=== PATIENT | male | born 1945 | race Caucasian/White ===

== ENCOUNTER 2021-07-24 11:14 | Inpatient (IN) ==
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
[2021-07-24] MEDS ORDERED: SODIUM CHLORIDE 0.9% 1000ML 1,000 ML IV SCH (11:30)
[2021-07-24 12:17] LABS: Basophils # (auto) 0.02 K/uL (0-0.2); Basophils % (auto) 0.2 %; Eosinophils # (auto) 0.05 K/uL (0-0.5); Eosinophils % (auto) 0.5 %; Hematocrit (blood only) 38.7 % (42-52); Immature Granulocytes # (auto) 0.04 K/uL (0.00-0.02); Immature Granulocytes % (auto) 0.4 %; Lymphocytes # (auto) 0.62 K/uL (1.2-3.4); Lymphocytes % (auto) 6.6 %; Mean Corpuscular Hgb Conc 33.6 g/dL (32-36); Mean Corpuscular Volume 83.2 fL (80-100); Mean Platelet Volume 9.6 fL (7.4-10.4); Monocytes # (auto) 1.18 K/uL (0.11-0.59); Monocytes % (auto) 12.5 %; Neutrophils # (auto) 7.55 K/uL (1.4-6.5); Neutrophils % (auto) 79.8 %; Platelet Count 222 K/uL (130-400); RDW Coefficient of Variation 16.3 % (11.5-14.5); RDW Standard Deviation 49.7 fL (36.4-46.3); Red Blood Count 4.65 M/uL (4.7-6.1); White Blood Count 9.46 K/uL (4.8-10.8)
[2021-07-24 12:39] LABS: Albumin Globulin Ratio 0.9 (0.9-2); BUN Creatinine Ratio 16.5 (10-20); Bilirubin,Total 1.4 mg/dl (0.2-1.0); Calcium 8.3 mg/dl (8.5-10.1); Creatinine Clr Calc Pharmacy 102.4 ml/min; Est GFR (African American) 100.4 ml/min; Est GFR (Non-African American) 86.6 ml/min; Globulin 3.5 gm/dl (2.5-4.0); Magnesium 2.1 mg/dl (1.7-2.4); Total Protein 6.5 gm/dl (6.0-8.3)
[2021-07-24 12:43] LABS: INR 1.1 (0.9-1.1); Partial Thromboplastin Ratio 1.2; Partial Thromboplastin Time 32.7 Seconds (21.0-31.0); Prothrombin Time 11.7 Seconds (9.0-12.0)
[2021-07-24 12:58] LABS: Influenza A virus by PCR Negative (Neg); Influenza B virus by PCR Negative (Neg); RSV by PCR Negative (Neg); SARS CoV2 RNA(COVID-19) InHosp NEGATIVE (Negative)
--- NOTE | 2021-07-24 13:27 | Ultrasound Report ---
US venous doppler LE RT HISTORY: 75 years-old Male swelling/pain eval dvt acute pain and swelling of the right lower leg COMPARISON: None TECHNIQUE: Multiple real-time sonographic images of the right lower extremity deep venous structures were obtained assessing grayscale appearance, color and spectral flow. FINDINGS: Normal flow, compressibility, phasicity and augmentation. IMPRESSION: No sonographic evidence of deep venous thrombosis. ACT 112: Negative or not required by law. The above report was generated using voice recognition software. It may contain grammatical, syntax o r spelling errors. Electronically signed by: Daniel Nelson M.D. 07/24/2021 1:25 PM
--- NOTE | 2021-07-24 14:03 | XRay Report ---
XR chest 1V not portable HISTORY: 75 years-old Male SEPSIS acute sepsis COMPARISON: Chest radiograph 12/23/2020 TECHNIQUE: Portable AP view of the chest FINDINGS: The cardiac silhouette is enlarged. Pulmonary vascular congestion with interstitial coarsening. Mild right hemidiaphragmatic elevation. Trace pleural effusions with mild bibasilar densities. No pneumoth orax. Degenerative changes of the shoulders and spine. IMPRESSION: 1. Cardiomegaly with pulmonary edema. 2. Trace pleural effusions with mild bibasilar opacities. 3. Mild right hemidiaphragmatic elevation. ACT 112: Negative or not required by law. The above report was generated using voice recognition software. It may contain grammatical, syntax o r spelling errors. Electronically signed by: Daniel Nelson M.D. 07/24/2021 2:02 PM
--- NOTE | 2021-07-24 14:04 | XRay Report ---
XR knee RT 1 or 2V routine CLINICAL HISTORY: Right knee pain. COMPARISON STUDY: Right knee 01/29/2021. FINDINGS: There is again noted a constrained right total knee arthroplasty. The hardware appears inta ct. No abnormal periprosthetic lucency. No fracture or dislocation within the right knee. Anterior so ft tissue swelling. There is a large knee effusion. IMPRESSION: 1. No fractures within the right knee. 2. Large knee effusion. 3. Anterior soft tissue swelling. ACT 112: Negative or not required by law. Electronically signed by: Garrison Arthur M.D. 07/24/2021 2:02 PM
--- NOTE | 2021-07-24 14:04 | XRay Report ---
XR hip 1V RT w pelvis CLINICAL HISTORY: Increasing right hip pain for the past 2 weeks.. COMPARISON STUDY: No previous studies for comparison. TECHNIQUE: AP pelvis and 2 right hip views FINDINGS: Bones: There is no evidence for an acute fracture or dislocation. There is no lytic or blastic lesion . Joints: There is moderate narrowing right hip joint space and moderate narrowing of the left hip join t space. Subchondral sclerosis and subchondral cyst formation are seen involving the superior acetabu lum bilaterally. The bones are in anatomic alignment. Lumbar spine: The lower lumbar spine was included on the AP view of the pelvis and demonstrates marke d degenerative change. Soft tissues: There is no focal soft tissue abnormality. There is no radiopaque foreign body. IMPRESSION: 1. No acute osseous pathology. 2. Osteoarthritis and degenerative changes. ACT 112: Negative or not required by law. Electronically signed by: Christoph Coles M.D. 07/24/2021 2:02 PM
--- NOTE | 2021-07-24 14:06 | CT Scan Report ---
CT SCAN OF THE BRAIN WITHOUT IV CONTRAST CLINICAL HISTORY: Falls. Generalized weakness. Difficulty with ambulation. COMPARISON STUDY: No priors. TECHNIQUE: Unenhanced axial CT scan of the brain is performed from the vertex to the skull base. A do se lowering technique was utilized adhering to the principles of ALARA. CT DOSE: 823.94 mGycm FINDINGS: Brain parenchyma: There are age-related involutional changes noting moderate patchy subcortical and periventricular microangiopathic change. There is no hemorrhage, mass effect, or evidence of acute te rritorial ischemia by CT criteria. Roberson-white matter differentiation is preserved. No extra-axial flu id collection is seen. Prominent perivascular spaces are noted in the basal ganglia bilaterally. Ventricles, sulci, cisterns: Prominent secondary to involutional change. Intracranial vasculature: There is atherosclerotic calcification of the cavernous carotid and vertebr al arteries. Calvarium: Unremarkable. Sinuses and mastoids: The visualized paranasal sinuses are clear. The mastoid air cells are well pneu matized. Orbits: The bony orbits are grossly intact. IMPRESSION: There is no hemorrhage, mass effect, or evidence of acute territorial ischemia by CT brittani liang. ACT 112: Negative or not required by law. Electronically signed by: Ruiz Hamlin M.D. 07/24/2021 2:04 PM
[2021-07-24 14:45] LABS: Appearance Urine Clear (Clear); Blood Urine Negative (Negative); Color Urine Orange; Glucose Urine UA Negative (Negative); Ketones Urine 1+ (Negative); Leukocyte Esterase Urine Trace (Negative); Nitrite Urine Positive (Negative); Protein Urine 2+ (Negative); RBC Urine Automated 0-4 /hpf (0-4); Specific Gravity Urine 1.026 (1.000-1.030); Urobilinogen Urine Positive (Negative); pH Urine 5.5 (4.5-7.5)
[2021-07-24 14:51] LABS: Bilirubin Urine 1+ (Negative)
[2021-07-24 15:00] LABS: Bacteria Urine Automated 1+ (Negative); Mucus Urine Present (None Prsent)
[2021-07-24] MEDS ORDERED: cefTRIAXone SODIUM 2,000 MG/70 ML BAG IV STA (15:11)
[2021-07-24] MEDS ORDERED: POTASSIUM CHLORIDE CRTAB 20 MEQ TABCR PO STA (15:13)
[2021-07-24] MEDS ORDERED: POTASSIUM CHLORIDE 10 MEQ TABCR PO ONE (15:20)
[2021-07-24] MEDS ORDERED: VANCOMYCIN HCL 2,250 MG in SODIUM CHLORIDE 0.9% 500 ML IV ONE (15:26)
[2021-07-24] MEDS ORDERED: VANCOMYCIN CONSULT ACTIVE PRN ×2 (15:26→17:45)
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
[2021-07-24] MEDS ORDERED: ALUMINUM/MAGNESIUM SUSP 30 ML UDC PO PRN (17:45)
[2021-07-24] MEDS ORDERED: oxyCODONE HCL IR 5 MG TAB (IMMEDIATE RELEASE) PO PRN (17:45)
[2021-07-24] MEDS ORDERED: POLYETHYLENE (MIRALAX) 17 GM PACK PO PRN (17:45)
[2021-07-24] MEDS ORDERED: MAGNESIUM HYDROXIDE SUSP 30 ML UDC PO PRN (17:45)
[2021-07-24] MEDS ORDERED: ONDANSETRON INJ 2 MG/ML 2 ML VIAL IV PRN (17:45)
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
[2021-07-24] MEDS ORDERED: POTASSIUM CHLORIDE CRTAB 20 MEQ TABCR PO ONE (19:00)
[2021-07-24 19:56] LABS: Appearance Synovial Fluid CLOUDY; Color Synovial Fluid STRAW; Mononuclear WBC Synovial 3.3 %; Polynuclear WBC Synovial 96.7 %; RBC Synovial Fluid (A) 3000 /uL; Source Synovial Fluid KNEE; WBC Synovial Fluid (A) 16832 /ul (0-200)
--- NOTE | 2021-07-24 20:21 | Pharmacy Report ---
Pharmacy Vanc AUC Short Note - Date of Service July 24, 2021 - Assessment & Plan Assessment * 75 year old M receiving ceftriaxone and vancomycin for treatment of RLE cellulitis and possible septic R knee. May or may not also have a UTI. * PMH: R TKA January 2021 * Pertinent microbiologic data includes: pending blood, urine, and right knee aspirate cultures Vancomycin * AUC/CLEMENTINA is the preferred PK/PD target for vancomycin * AUC guided dosing is effective and associated with decreased risk of nephrotoxicity compared to traditional trough targets Plan * Vancomycin 2250 mg IV x1 then 1000 mg IV q12h * Trough 07/26 @ 0730 Pharmacy will continue to follow and will adjust dose/frequency as necessary. Thank you.
[2021-07-24] MEDS: ACETAMINOPHEN 325 MG TAB PO PRN (20:42)
[2021-07-24] MEDS: ENOXAPARIN INJ 40 MG/0.4 ML SYR SQ SCH (20:46)
--- NOTE | 2021-07-25 06:58 | Electrocardiogram Report ---
Test Reason : Blood Pressure : / mmHG Vent. 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 lead placement vs. LVH Abnormal ECG When compared with ECG of 23-DEC-2020 15:01, No significant change was found Confirmed by Jose Delaney ([id number]) on 07/25/2021 6:57:54 AM Referred By: Confirmed By:Jose Delaney
[2021-07-25 07:01] LABS: Basophils # (auto) 0.02 K/uL (0-0.2); Basophils % (auto) 0.2 %; Eosinophils # (auto) 0.16 K/uL (0-0.5); Eosinophils % (auto) 1.9 %; Hematocrit (blood only) 40.3 % (42-52); Hemoglobin 13.4 g/dL (14.0-18.0); Immature Granulocytes # (auto) 0.03 K/uL (0.00-0.02); Immature Granulocytes % (auto) 0.4 %; Lymphocytes # (auto) 0.54 K/uL (1.2-3.4); Lymphocytes % (auto) 6.5 %; Mean Corpuscular Hemoglobin 27.8 pg (25-34); Mean Corpuscular Hgb Conc 33.3 g/dL (32-36); Mean Corpuscular Volume 83.6 fL (80-100); Mean Platelet Volume 10.3 fL (7.4-10.4); Monocytes # (auto) 0.95 K/uL (0.11-0.59); Monocytes % (auto) 11.5 %; Neutrophils # (auto) 6.59 K/uL (1.4-6.5); Neutrophils % (auto) 79.5 %; Platelet Count 221 K/uL (130-400); RDW Coefficient of Variation 16.4 % (11.5-14.5); RDW Standard Deviation 50.1 fL (36.4-46.3); Red Blood Count 4.82 M/uL (4.7-6.1); White Blood Count 8.29 K/uL (4.8-10.8)
[2021-07-25 07:34] LABS: Albumin Globulin Ratio 0.8 (0.9-2); Albumin Level 2.8 gm/dl (3.4-5.0); BUN Creatinine Ratio 19.1 (10-20); Bilirubin,Total 1.2 mg/dl (0.2-1.0); Calcium 8.1 mg/dl (8.5-10.1); Creatinine Clr Calc Pharmacy 108.6 ml/min; Est GFR (African American) 106.8 ml/min; Est GFR (Non-African American) 92.1 ml/min; Globulin 3.6 gm/dl (2.5-4.0); Magnesium 2.1 mg/dl (1.7-2.4); Potassium 3.2 mmol/L (3.5-5.1); Total Protein 6.4 gm/dl (6.0-8.3)
[2021-07-25] MEDS ORDERED: POTASSIUM CHLORIDE CRTAB 20 MEQ TABCR PO STA (08:22)
[2021-07-25] MEDS: MULTIVITAMIN TAB PO SCH (08:34)
[2021-07-25] MEDS: cefTRIAXone SODIUM 2,000 MG in DEXTROSE 5% 50 ML IV SCH (08:38)
[2021-07-25] MEDS: VANCOMYCIN HCL 1,000 MG in SODIUM CHLORIDE 0.9% 250 ML IV SCH ×2 (08:38→19:57)
[2021-07-25] MEDS: ENOXAPARIN INJ 40 MG/0.4 ML SYR SQ SCH ×2 (09:27→19:56)
--- NOTE | 2021-07-25 11:28 | Hospitalist Progress Note ---
Date of Service July 25, 2021 Assessment & Plan (1) Staphylococcus aureus bacteremia: (2) Septic arthritis of knee, right: (3) Cellulitis of right leg: (4) History of total right knee replacement (TKR): (5) Abnormal urinalysis: (6) Elevated troponin: (7) Hypokalemia: Plan: This is a 75-year-old who presents to ED after complaining of "I can't move x 2 weeks." He has been having trouble walking due to RLE pain for approximately 2 weeks. Suspected septic arthritis right TKR with right leg cellulitis with staph aureus bacteremia History of right total knee replacement, 01/2021 Dr. Jimenez - Blood clx 07/24 with GPC clusters in 05/14, Staph positive by PCR but MRSA negative. Repeat blood clx sent today- daily blood clx until clearance of bacteremia. F/u on CRP, ESR intermittently - Get TTE to r/o vegetations. - [place] [address] WBC (although not too high as seen in septic arthritis), cloudy but negative crystals; clx pending - Continue vanc pending further clx results - Ortho following- plan for OR tomorrow- npo after midnight- Ortho to send OR cultures - Will consult ID once more data available. patient currently stable, non septic - Will need PT evaluation after surgery for discharge planning Abnormal UA- r/o UTI. On rocephin pending urine clx results. Hypokalemia- repleted, recheck in am Elevated high-sensitivity troponin EKG without ischemic change, patient denies chest pain Cycle troponin, EKG in a.m. DVT prophylaxis: Lovenox- hold in am for surgery Dispo: OR tomorrow. On IV antibiotics for bacteremia and septic TKR. Will likely need rehab. Admission and Anticipated Discharge Date Admission Date: July 24, 2021 Subjective Patient was seen and examined at bedside. States a lot of fluid was taken from his right knee yesterday and he was surprised by the amount taken out. Has some pain at the right knee. No fever, chills, chest pain, shortness of breath, nausea, vomiting. Discussed the plan of care with him. States his sister is coming to the hospital in the afternoon to visit him. Physical Exam Physical Exam: General: Sitting comfortably in chair, not in distress, on room air HEENT: EOMI, MAEGAN, MMM Chest: Clear breath sounds bilaterally, no wheezes or crackles CVS: Regular rate and rhythm, normal heart sounds, no murmur Abdomen: Soft, non tender, not distended, normal bowel sounds Neuro: Awake, alert, oriented, conversing well, non focal Extremities: No cyanosis, clubbing. Right knee swollen, warm, tender, mild erythema. Right leg with some skin peeling and swelling. Results & Data Results & Data ([facility]) Vital Signs (Past 12 Hours) Vital Signs Temp Pulse Pulse Resp BP Pulse Ox 07/25/21 09:43 99 H 07/25/21 08:39 37.2 C 93 H 20 162/87 H 92 07/25/21 03:00 37.4 C 96 H 20 146/77 H 92 07/25/21 00:16 100 H
--- NOTE | 2021-07-25 12:52 | Orthopedic Progress Note ---
Date of Service July 25, 2021 Assessment & Plan (1) Cellulitis: Plan: Right lower extremity cellulitis patient on IV antibiotics to treat condition (2) Knee effusion, right: Plan: Likely septic right TKA Gram stain + for gram + cocci; 16k WBC's; 96% poly's Pt will need I&D of right tka with polyethylene bearing change. Plan for tomorrow per Dr Jimenez. Case discussed with hospitalist service. (3) History of total right knee replacement (TKR): Admission and Anticipated Discharge Date Admission Date: July 24, 2021 Subjective Pt sitting up in bed eating his lunch. Pt relatively comfortable at this time. Pain controlled fairly well. No other complaints. Sister present. All questions answered. Physical Exam Physical Exam: Right knee with large effusion. Erythema. Warm to touch. Erythema noted LE's of which apparently looks better today than yesterday. NV intact. Toes mobile. Calves soft, NT. Results & Data ([facility]) Vital Signs (Past 12 Hours) Vital Signs Temp Pulse Pulse Resp BP Pulse Ox 07/25/21 11:54 37.1 C 111 H 20 135/79 93 07/25/21 09:43 99 H 07/25/21 08:39 37.2 C 93 H 20 162/87 H 92 07/25/21 03:00 37.4 C 96 H 20 146/77 H 92 Laboratory Results 07/25/21 07/25/21 07/24/21 Range/Units 05:48 05:48 23:23 WBC 8.29 (4.8-10.8) K/uL RBC 4.82 (4.7-6.1) M/uL Hgb 13.4 L (14.0-18.0) g/dL Hct 40.3 L (42-52) % MCV 83.6 (80-100) fL MCH 27.8 (25-34) pg MCHC 33.3 (32-36) g/dL RDW Std Deviation 50.1 H (36.4-46.3) fL RDW Coeff of Nik 16.4 H (11.5-14.5) % Plt Count 221 (130-400) K/uL MPV 10.3 (7.4-10.4) fL Immature Gran % (Auto) 0.4 % Neut % (Auto) 79.5 % Lymph % (Auto) 6.5 % [place] % (Auto) 11.5 % Eos % (Auto) 1.9 % Baso % (Auto) 0.2 % Neut # (Auto) 6.59 H (1.4-6.5) K/uL Lymph # (Auto) 0.54 L (1.2-3.4) K/uL [place] # (Auto) 0.95 H (0.11-0.59) K/uL Eos # (Auto) 0.16 (0-0.5) K/uL Baso # (Auto) 0.02 (0-0.2) K/uL Immature Gran # (Auto) 0.03 H (0.00-0.02) K/uL ESR (0-20) mm/hr Sodium 134 L (136-145) mmol/L Potassium 3.2 L (3.5-5.1) mmol/L Chloride 100 (98-107) mmol/L Carbon Dioxide 25 (21-32) mmol/L Anion Gap 9 (3-11) BUN 13 (6-23) mg/dl Creatinine 0.68 (0.6-1.4) mg/dl Est Cr Clr Drug Dosing 108.6 ml/min Est GFR ( Amer) 106.8 ml/min Est GFR (Non-Af Amer) 92.1 ml/min BUN/Creatinine Ratio 19.1 (10-20) Glucose 95 (70-99(Fasting)) mg/dl Calcium 8.1 L (8.5-10.1) mg/dl Magnesium 2.1 (1.7-2.4) mg/dl Total Bilirubin 1.2 H (0.2-1.0) mg/dl AST 23 (13-39) U/L ALT 18 (7-52) U/L Alkaline Phosphatase 62 (34-104) U/L Troponin I High Sens 19.4 (0-20) pg/ml C-Reactive Protein (0-0.5) mg/dl Total Protein 6.4 (6.0-8.3) gm/dl Albumin 2.8 L (3.4-5.0) gm/dl Globulin 3.6 (2.5-4.0) gm/dl Albumin/Globulin Ratio 0.8 L (0.9-2) Procalcitonin (0-0.5) ng/ml Urine Color Urine Appearance (Clear) Urine pH (4.5-7.5) Ur Specific [place] (1.000-1.030) Urine Protein (Negative) Urine Glucose (UA) (Negative) Urine Ketones (Negative) Urine Blood (Negative) Urine Nitrite (Negative) Urine Bilirubin (Negative) Urine Urobilinogen (Negative) Ur Leukocyte Esterase (Negative) Urine WBC (Auto) (0-5) /hpf Urine RBC (Auto) (0-4) /hpf U Hyaline Cast (Auto) (0-5) /lpf U Epithel Cells (Auto) (0-5) /lpf Urine Bacteria (Auto) (Negative) Ur Renal Epithelial Cell Urine Mucus (None Prsent) Fluid Comment Synovial Source Synovial Color Synovial Appearance Synovial WBC (0-200) /ul Synovial RBC /uL Synovial Polynuclear % % Synovial Mononuclear % % Synovial Crystals SARS-CoV-2 (PCR) (Negative) Influenza Type A (PCR) (Neg) Influenza Type B (PCR) (Neg) RSV (RT-PCR) (Neg) Bld Cult Staph aureus PCR (Negative) Blood Culture MRSA PCR (Negative) 07/24/21 07/24/21 07/24/21 Range/Units 19:03 18:15 18:15 WBC (4.8-10.8) K/uL RBC (4.7-6.1) M/uL Hgb (14.0-18.0) g/dL Hct (42-52) % MCV (80-100) fL MCH (25-34) pg MCHC (32-36) g/dL RDW Std Deviation (36.4-46.3) fL RDW Coeff of Nik (11.5-14.5) % Plt Count (130-400) K/uL MPV (7.4-10.4) fL Immature Gran % (Auto) % Neut % (Auto) % Lymph % (Auto) % [place] % (Auto) % Eos % (Auto) % Baso % (Auto) % Neut # (Auto) (1.4-6.5) K/uL Lymph # (Auto) (1.2-3.4) K/uL [place] # (Auto) (0.11-0.59) K/uL Eos # (Auto) (0-0.5) K/uL Baso # (Auto) (0-0.2) K/uL Immature Gran # (Auto) (0.00-0.02) K/uL ESR (0-20) mm/hr Sodium (136-145) mmol/L Potassium (3.5-5.1) mmol/L Chloride (98-107) mmol/L Carbon Dioxide (21-32) mmol/L Anion Gap (3-11) BUN (6-23) mg/dl Creatinine (0.6-1.4) mg/dl Est Cr Clr Drug Dosing ml/min Est GFR ( Amer) ml/min Est GFR (Non-Af Amer) ml/min BUN/Creatinine Ratio (10-20) Glucose (70-99(Fasting)) mg/dl Calcium (8.5-10.1) mg/dl Magnesium (1.7-2.4) mg/dl Total Bilirubin (0.2-1.0) mg/dl AST (13-39) U/L ALT (7-52) U/L Alkaline Phosphatase (34-104) U/L Troponin I High Sens 21.2 H (0-20) pg/ml C-Reactive Protein (0-0.5) mg/dl Total Protein (6.0-8.3) gm/dl Albumin (3.4-5.0) gm/dl Globulin (2.5-4.0) gm/dl Albumin/Globulin Ratio (0.9-2) Procalcitonin (0-0.5) ng/ml Urine Color Urine Appearance (Clear) Urine pH (4.5-7.5) Ur Specific [place] (1.000-1.030) Urine Protein (Negative) Urine Glucose (UA) (Negative) Urine Ketones (Negative) Urine Blood (Negative) Urine Nitrite (Negative) Urine Bilirubin (Negative) Urine Urobilinogen (Negative) Ur Leukocyte Esterase (Negative) Urine WBC (Auto) (0-5) /hpf Urine RBC (Auto) (0-4) /hpf U Hyaline Cast (Auto) (0-5) /lpf U Epithel Cells (Auto) (0-5) /lpf Urine Bacteria (Auto) (Negative) Ur Renal Epithelial Cell Urine Mucus (None Prsent) Fluid Comment Synovial Source [place] Synovial Color STRAW Synovial Appearance CLOUDY Synovial WBC 85849 H (0-200) /ul Synovial RBC 3000 /uL Synovial Polynuclear % 96.7 % Synovial Mononuclear % 3.3 % Synovial Crystals SARS-CoV-2 (PCR) (Negative) Influenza Type A (PCR) (Neg) Influenza Type B (PCR) (Neg) RSV (RT-PCR) (Neg) Bld Cult Staph aureus PCR (Negative) Blood Culture MRSA PCR (Negative) 07/24/21 07/24/21 07/24/21 Range/Units 14:29 14:17 12:02 WBC (4.8-10.8) K/uL RBC (4.7-6.1) M/uL Hgb (14.0-18.0) g/dL Hct (42-52) % MCV (80-100) fL MCH (25-34) pg MCHC (32-36) g/dL RDW Std Deviation (36.4-46.3) fL RDW Coeff of Nik (11.5-14.5) % Plt Count (130-400) K/uL MPV (7.4-10.4) fL Immature Gran % (Auto) % Neut % (Auto) % Lymph % (Auto) % [place] % (Auto) % Eos % (Auto) % Baso % (Auto) % Neut # (Auto) (1.4-6.5) K/uL Lymph # (Auto) (1.2-3.4) K/uL [place] # (Auto) (0.11-0.59) K/uL Eos # (Auto) (0-0.5) K/uL Baso # (Auto) (0-0.2) K/uL Immature Gran # (Auto) (0.00-0.02) K/uL ESR (0-20) mm/hr Sodium (136-145) mmol/L Potassium (3.5-5.1) mmol/L Chloride (98-107) mmol/L Carbon Dioxide (21-32) mmol/L Anion Gap (3-11) BUN (6-23) mg/dl Creatinine (0.6-1.4) mg/dl Est Cr Clr Drug Dosing ml/min Est GFR ( Amer) ml/min Est GFR (Non-Af Amer) ml/min BUN/Creatinine Ratio (10-20) Glucose (70-99(Fasting)) mg/dl Calcium (8.5-10.1) mg/dl Magnesium (1.7-2.4) mg/dl Total Bilirubin (0.2-1.0) mg/dl AST (13-39) U/L ALT (7-52) U/L Alkaline Phosphatase (34-104) U/L Troponin I High Sens 23.8 H (0-20) pg/ml C-Reactive Protein (0-0.5) mg/dl Total Protein (6.0-8.3) gm/dl Albumin (3.4-5.0) gm/dl Globulin (2.5-4.0) gm/dl Albumin/Globulin Ratio (0.9-2) Procalcitonin (0-0.5) ng/ml Urine Color [place] Urine Appearance Clear (Clear) Urine pH 5.5 (4.5-7.5) Ur Specific [place] 1.026 (1.000-1.030) Urine Protein 2+ H (Negative) Urine Glucose (UA) Negative (Negative) Urine Ketones 1+ H (Negative) Urine Blood Negative (Negative) Urine Nitrite Positive A (Negative) Urine Bilirubin 1+ H (Negative) Urine Urobilinogen Positive H (Negative) Ur Leukocyte Esterase Trace H (Negative) Urine WBC (Auto) 5-10 H (0-5) /hpf Urine RBC (Auto) 0-4 (0-4) /hpf U Hyaline Cast (Auto) 5-10 H (0-5) /lpf U Epithel Cells (Auto) 5-10 H (0-5) /lpf Urine Bacteria (Auto) 1+ H (Negative) Ur Renal Epithelial Cell Not Reportable Urine Mucus Present A (None Prsent) Fluid Comment Synovial Source Synovial Color Synovial Appearance Synovial WBC (0-200) /ul Synovial RBC /uL Synovial Polynuclear % % Synovial Mononuclear % % Synovial Crystals SARS-CoV-2 (PCR) (Negative) Influenza Type A (PCR) (Neg) Influenza Type B (PCR) (Neg) RSV (RT-PCR) (Neg) Bld Cult Staph aureus PCR Positive A (Negative) Blood Culture MRSA PCR Negative (Negative) 07/24/21 07/24/21 07/24/21 Range/Units 12:02 12:02 12:02 WBC (4.8-10.8) K/uL RBC (4.7-6.1) M/uL Hgb (14.0-18.0) g/dL Hct (42-52) % MCV (80-100) fL MCH (25-34) pg MCHC (32-36) g/dL RDW Std Deviation (36.4-46.3) fL RDW Coeff of Nik (11.5-14.5) % Plt Count (130-400) K/uL MPV (7.4-10.4) fL Immature Gran % (Auto) % Neut % (Auto) % Lymph % (Auto) % [place] % (Auto) % Eos % (Auto) % Baso % (Auto) % Neut # (Auto) (1.4-6.5) K/uL Lymph # (Auto) (1.2-3.4) K/uL [place] # (Auto) (0.11-0.59) K/uL Eos # (Auto) (0-0.5) K/uL Baso # (Auto) (0-0.2) K/uL Immature Gran # (Auto) (0.00-0.02) K/uL ESR 77 H (0-20) mm/hr Sodium (136-145) mmol/L Potassium (3.5-5.1) mmol/L Chloride (98-107) mmol/L Carbon Dioxide (21-32) mmol/L Anion Gap (3-11) BUN (6-23) mg/dl Creatinine (0.6-1.4) mg/dl Est Cr Clr Drug Dosing ml/min Est GFR ( Amer) ml/min Est GFR (Non-Af Amer) ml/min BUN/Creatinine Ratio (10-20) Glucose (70-99(Fasting)) mg/dl Calcium (8.5-10.1) mg/dl Magnesium (1.7-2.4) mg/dl Total Bilirubin (0.2-1.0) mg/dl AST (13-39) U/L ALT (7-52) U/L Alkaline Phosphatase (34-104) U/L Troponin I High Sens (0-20) pg/ml C-Reactive Protein 27.11 H (0-0.5) mg/dl Total Protein (6.0-8.3) gm/dl Albumin (3.4-5.0) gm/dl Globulin (2.5-4.0) gm/dl Albumin/Globulin Ratio (0.9-2) Procalcitonin 1.01 H (0-0.5) ng/ml Urine Color Urine Appearance (Clear) Urine pH (4.5-7.5) Ur Specific [place] (1.000-1.030) Urine Protein (Negative) Urine Glucose (UA) (Negative) Urine Ketones (Negative) Urine Blood (Negative) Urine Nitrite (Negative) Urine Bilirubin (Negative) Urine Urobilinogen (Negative) Ur Leukocyte Esterase (Negative) Urine WBC (Auto) (0-5) /hpf Urine RBC (Auto) (0-4) /hpf U Hyaline Cast (Auto) (0-5) /lpf U Epithel Cells (Auto) (0-5) /lpf Urine Bacteria (Auto) (Negative) Ur Renal Epithelial Cell Urine Mucus (None Prsent) Fluid Comment Synovial Source Synovial Color Synovial Appearance Synovial WBC (0-200) /ul Synovial RBC /uL Synovial Polynuclear % % Synovial Mononuclear % % Synovial Crystals SARS-CoV-2 (PCR) (Negative) Influenza Type A (PCR) (Neg) Influenza Type B (PCR) (Neg) RSV (RT-PCR) (Neg) Bld Cult Staph aureus PCR (Negative) Blood Culture MRSA PCR (Negative) 07/24/21 07/24/21 Range/Units 12:02 12:02 WBC (4.8-10.8) K/uL RBC (4.7-6.1) M/uL Hgb (14.0-18.0) g/dL Hct (42-52) % MCV (80-100) fL MCH (25-34) pg MCHC (32-36) g/dL RDW Std Deviation (36.4-46.3) fL RDW Coeff of Nik (11.5-14.5) % Plt Count (130-400) K/uL MPV (7.4-10.4) fL Immature Gran % (Auto) % Neut % (Auto) % Lymph % (Auto) % [place] % (Auto) % Eos % (Auto) % Baso % (Auto) % Neut # (Auto) (1.4-6.5) K/uL Lymph # (Auto) (1.2-3.4) K/uL [place] # (Auto) (0.11-0.59) K/uL Eos # (Auto) (0-0.5) K/uL Baso # (Auto) (0-0.2) K/uL Immature Gran # (Auto) (0.00-0.02) K/uL ESR (0-20) mm/hr Sodium (136-145) mmol/L Potassium (3.5-5.1) mmol/L Chloride (98-107) mmol/L Carbon Dioxide (21-32) mmol/L Anion Gap (3-11) BUN (6-23) mg/dl Creatinine (0.6-1.4) mg/dl Est Cr Clr Drug Dosing ml/min Est GFR ( Amer) ml/min Est GFR (Non-Af Amer) ml/min BUN/Creatinine Ratio (10-20) Glucose (70-99(Fasting)) mg/dl Calcium (8.5-10.1) mg/dl Magnesium (1.7-2.4) mg/dl Total Bilirubin (0.2-1.0) mg/dl AST (13-39) U/L ALT (7-52) U/L Alkaline Phosphatase (34-104) U/L Troponin I High Sens 25.8 H (0-20) pg/ml C-Reactive Protein (0-0.5) mg/dl Total Protein (6.0-8.3) gm/dl Albumin (3.4-5.0) gm/dl Globulin (2.5-4.0) gm/dl Albumin/Globulin Ratio (0.9-2) Procalcitonin (0-0.5) ng/ml Urine Color Urine Appearance (Clear) Urine pH (4.5-7.5) Ur Specific [place] (1.000-1.030) Urine Protein (Negative) Urine Glucose (UA) (Negative) Urine Ketones (Negative) Urine Blood (Negative) Urine Nitrite (Negative) Urine Bilirubin (Negative) Urine Urobilinogen (Negative) Ur Leukocyte Esterase (Negative) Urine WBC (Auto) (0-5) /hpf Urine RBC (Auto) (0-4) /hpf U Hyaline Cast (Auto) (0-5) /lpf U Epithel Cells (Auto) (0-5) /lpf Urine Bacteria (Auto) (Negative) Ur Renal Epithelial Cell Urine Mucus (None Prsent) Fluid Comment Synovial Source Synovial Color Synovial Appearance Synovial WBC (0-200) /ul Synovial RBC /uL Synovial Polynuclear % % Synovial Mononuclear % % Synovial Crystals SARS-CoV-2 (PCR) NEGATIVE (Negative) Influenza Type A (PCR) Negative (Neg) Influenza Type B (PCR) Negative (Neg) RSV (RT-PCR) Negative (Neg) Bld Cult Staph aureus PCR (Negative) Blood Culture MRSA PCR (Negative) (1) Cellulitis Laterality: right Site of cellulitis: extremity Site of cellulitis of extremity: lower extremity Qualified Code(s): L03.115 - Cellulitis of right lower limb
[2021-07-25] MEDS: ACETAMINOPHEN 325 MG TAB PO PRN ×2 (14:15→19:59)
[2021-07-25] MEDS: SACCHAROMYCES BOULARDII 250 MG CAP PO SCH (16:52)
[2021-07-25] MEDS ORDERED: POTASSIUM CHLORIDE CRTAB 20 MEQ TABCR PO ONE (18:05)
--- NOTE | 2021-07-26 06:31 | Electrocardiogram Report ---
Test Reason : Blood Pressure : / mmHG Vent. Rate : 101 BPM Atrial Rate : 101 BPM P-R Int : 168 ms QRS Dur : 096 ms QT Int : 358 ms P-R-T Axes : 020 -36 045 degrees QTc Int : 464 ms Sinus tachycardia with frequent , and consecutive Premature ventricular complexes Left axis deviation Low voltage QRS Inferior infarct (cited on or before 23-DEC-2020) Abnormal ECG When compared with ECG of 24-JUL-2021 11:50, Premature ventricular complexes are now Present Confirmed by Jose Delaney ([id number]) on 07/26/2021 6:31:15 AM Referred By: REFERRED SELF Confirmed By:Jose Delaney
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
[2021-07-26] MEDS ORDERED: ROPIVACAINE 0.5% 5 MG/ML 30 ML VIAL ONE (06:58)
[2021-07-26] MEDS ORDERED: VANCOMYCIN TROUGH ONE (07:30)
[2021-07-26] MEDS ORDERED: fentaNYL citrate 100 MCG/2 ML VIAL ONE ×3 (07:50→10:58)
[2021-07-26] MEDS ORDERED: MIDAZOLAM HCL 1 MG/ML 2ML VIAL ONE (07:50)
[2021-07-26 07:56] LABS: Hematocrit (blood only) 38.9 % (42-52); Hemoglobin 13.2 g/dL (14.0-18.0); Mean Corpuscular Hemoglobin 28.5 pg (25-34); Mean Corpuscular Hgb Conc 33.9 g/dL (32-36); Mean Platelet Volume 9.9 fL (7.4-10.4); Platelet Count 267 K/uL (130-400); RDW Coefficient of Variation 16.2 % (11.5-14.5); RDW Standard Deviation 50.1 fL (36.4-46.3); Red Blood Count 4.63 M/uL (4.7-6.1); White Blood Count 8.67 K/uL (4.8-10.8)
[2021-07-26] MEDS: cefTRIAXone SODIUM 2,000 MG in DEXTROSE 5% 50 ML IV SCH (08:04)
[2021-07-26] MEDS: SACCHAROMYCES BOULARDII 250 MG CAP PO SCH (08:07)
[2021-07-26] MEDS: VANCOMYCIN HCL 1,000 MG in SODIUM CHLORIDE 0.9% 250 ML IV SCH (08:07)
[2021-07-26] MEDS: MULTIVITAMIN TAB PO SCH (08:07)
[2021-07-26 08:19] LABS: BUN Creatinine Ratio 16.7 (10-20); Calcium 8.2 mg/dl (8.5-10.1); Creatinine Clr Calc Pharmacy 123.1 ml/min; Est GFR (African American) 112.4 ml/min; Magnesium 2.1 mg/dl (1.7-2.4); Potassium 3.3 mmol/L (3.5-5.1)
[2021-07-26 08:21] LABS: Basophils # (auto) 0.03 K/uL (0-0.2); Basophils % (auto) 0.3 %; Eosinophils # (auto) 0.24 K/uL (0-0.5); Eosinophils % (auto) 2.8 %; Immature Granulocytes # (auto) 0.03 K/uL (0.00-0.02); Immature Granulocytes % (auto) 0.3 %; Lymphocytes # (auto) 0.89 K/uL (1.2-3.4); Lymphocytes % (auto) 10.3 %; Monocytes # (auto) 0.96 K/uL (0.11-0.59); Monocytes % (auto) 11.1 %; Neutrophils # (auto) 6.52 K/uL (1.4-6.5); Neutrophils % (auto) 75.2 %
[2021-07-26] MEDS ORDERED: fentaNYL citrate 100 MCG/2 ML VIAL IV PRN (08:46)
[2021-07-26] MEDS ORDERED: ePHEDrine sulfate 50 MG/ML AMP IV PRN (08:46)
[2021-07-26] MEDS ORDERED: ONDANSETRON INJ 2 MG/ML 2 ML VIAL IV PRN (08:46)
[2021-07-26] MEDS ORDERED: ATROPINE SULFATE 0.1 MG/ML 10ML SYR IV PRN (08:46)
[2021-07-26] MEDS ORDERED: LIDOCAINE 2% 2 ML VIAL/AMP(20MG/ML) INFIL ONE (08:50)
[2021-07-26] MEDS ORDERED: PROPOFOL IV EMULSION 10 MG/ML 20 ML VIAL IV ONE (08:50)
[2021-07-26] MEDS ORDERED: ceFAZolin 330 MG/ML 1 GM VIAL ONE ×2 (09:13→09:38)
[2021-07-26] MEDS ORDERED: POTASSIUM CHLORIDE CRTAB 20 MEQ TABCR PO STA ×2 (09:46→14:05)
--- NOTE | 2021-07-26 09:51 | History & Physical Bridge Note ---
Date of Service July 26, 2021 History & Physical Bridge Note I have examined the patient, reviewed the History & Physical and in the interval since the performance of the History & Physical I have noted the following changes of clinical significance: no changes noted
[2021-07-26] MEDS ORDERED: ONDANSETRON INJ 2 MG/ML 2 ML VIAL ONE (09:57)
[2021-07-26] MEDS ORDERED: KETAMINE 50 MG/5 ML SYRINGE ONE (10:13)
[2021-07-26] MEDS: VANCOMYCIN HCL 1000MG/20ML VIAL ONE (10:24)
[2021-07-26] MEDS ORDERED: ACETAMINOPHEN 1000 MG/100 ML IV IV ONE (10:31)
[2021-07-26] MEDS ORDERED: KETOROLAC 30 MG/ML VIAL ONE (11:00)
[2021-07-26] MEDS ORDERED: DEXAMETHASONE SOD INJ 4 MG/ML VIAL ONE (11:43)
--- NOTE | 2021-07-26 12:07 | Post Operative Brief Note ---
Immediate Post Op Note v1 Date of Surgery July 26, 2021 Pre & Post Diagnosis Operation Date: 07/26/21 07:00 Pre-Op Diagnosis: Acute septic right knee replacement, right lower extremity cellulitis. Post-Op Diagnosis: Acute septic right knee replacement, right lower extremity cellulitis I identified the patient and participated in the time-out.: Yes Procedure Operation Date: 07/26/21 07:00 Actual Procedures p Incision and Drainage, irrigation debridement, synovectomy of Right Knee with tibial polyethylene Bearing Change, placement of antibiotic beads and kannan and Acticoat superficial wound VAC (Right) - Sam Jimenez MD Surgeon Sam Jimenez MD Sheeter W[employer]er Operator RAJ Bosch Estimated Blood Loss 10 Findings Consistent with Post-Op Diagnosis Specimens Synovial tissue Culture swabs x2 Drains Hemovac Drain Anesthesia Type General Regional Complications none Disposition Disposition: Recovery Room Overlapping Procedure I was immediately available: during the entire case.
--- NOTE | 2021-07-26 12:35 | Anesthesiology Progress Note ---
Date of Service July 26, 2021 Anesthesia Post Procedure Vital Signs Vital Signs: Temp Pulse Pulse Pulse Resp BP BP 07/26/21 12:20 90 21 149/85 H 07/26/21 12:10 88 20 158/87 H 07/26/21 12:04 97.3 F L 91 H 19 160/85 H 07/26/21 07:35 96 H 07/26/21 07:00 98.1 F 82 20 136/69 07/26/21 04:23 98.4 F 107 H 20 138/69 07/26/21 02:33 92 H 07/25/21 22:00 98.1 F 96 H 20 132/72 07/25/21 19:00 100.2 F H 110 H 20 153/80 H 07/25/21 16:24 91 H 07/25/21 16:00 98.2 F 98 H 18 143/71 H Pulse Ox 07/26/21 12:20 97 07/26/21 12:10 97 07/26/21 12:04 95 07/26/21 07:35 07/26/21 07:00 93 07/26/21 04:23 92 07/26/21 02:33 07/25/21 22:00 93 07/25/21 19:00 97 07/25/21 16:24 07/25/21 16:00 92 Pain Intensity Right Knee: Pain Intensity: 2 Transfer of Care Handoff Completed per policy Notes Mental Status: alert / awake / arousable and participated in evaluation Patient Amnestic to Procedure: Yes Nausea / Vomiting: adequately controlled Pain: adequately controlled Airway Patency, RR, SpO2: stable & adequate BP & HR: stable & adequate Hydration State: stable & adequate Anesthetic Complications: no major complications apparent and Pt Satisfied with anesthetic care
--- NOTE | 2021-07-26 12:43 | XRay Report ---
XR knee RT 1 or 2V routine CLINICAL HISTORY: Surgical Post Op. COMPARISON STUDY: 07/24/2021 TECHNIQUE: 2 right knee views FINDINGS: Compared to previous examination, the patient is again status post total knee replacement w ith a hinge component. There is resurfacing of the patella. There has been interval placement of anti biotic beads within the knee joint. IMPRESSION: 1. Status post placement of antibiotic beads within the knee joint capsule. ACT 112: Negative or not required by law. Electronically signed by: Christoph Coles M.D. 07/26/2021 12:42 PM
--- NOTE | 2021-07-26 13:06 | Operative Report (OR) ---
INDICATIONS FOR PROCEDURE: The patient is a 75-year-old male who I did a primary right total knee re placement in January of 2021. He did well, was having no difficulty whatsoever until 2 weeks ago whe n he developed cellulitis of his leg and then the right knee became painful and swollen and he became septic and admitted to the hospital. Blood cultures were positive for staph. The knee aspirated fo r 100 mL of cloudy fluid with increased white blood cell count of the knee joint fluid and positive c ultures for staph. Radiographs demonstrate no loosening of the implant. The patient does have right lower extremity cellulitis. His condition is consistent with an acute septic right knee replacement without loosening. PREOPERATIVE DIAGNOSIS: Acute right septic total knee replacement with ipsilateral right lower extre mity cellulitis. POSTOPERATIVE DIAGNOSIS: Acute right septic total knee replacement with ipsilateral right lower extr emity cellulitis. PROCEDURE: Right knee incision and drainage and irrigation and debridement including electrocautery synovectomy and Versajet synovectomy debridement with tibial polyethylene exchange and placement of a ntibiotic beads with vancomycin. SURGEON: Sam Jimenez MD ATHLETIC EQUIPMENT CUSTODIAN: Santos Liang PA-C ANESTHESIA: General and regional block. COMPLICATIONS: None. SPECIMENS: Synovium and cultures x2. BLOOD LOSS: 10 mL or less. DRAINS: Two Hemovac. DESCRIPTION OF PROCEDURE: The patient had a regional block, adductor canal block performed in the the [facility] area. He was transferred to the operating room and placed under general anesthetic. Placed laureano pine on the operating table. Pneumatic tourniquet was placed on the right upper thigh. Right lower extremity examined and demonstrates he had 0 through 100 degrees flexion of his knee. He ____ large effusion. There are no sinus tracts or drainage. He does have ipsilateral cellulitis with right low er extremity with some chronic venous stasis changes and dry flaking skin. Similar venous stasis batool nges of opposite leg, not as erythematous as right leg. His right lower extremity was prepped and dr aped with ChloraPrep. Leg was elevated and the pneumatic tourniquet was raised to 350 mmHg. Anterio r incision was made through his old anterior scar in a longitudinal fashion across the knee. Skin wa s incised sharply through his subcutaneous tissues. These were elevated off the extensor mechanism a nd retinaculum. His extensor mechanism was all intact. Retinaculum was all intact. Incision was junie dukes through medial retinaculum and there was a large cloudy knee effusion. Cultures were obtained rayshawn p within the joint. Incision was carried down to medial tibial tubercle and up into the mid third of the quadriceps tendon. Knee was copiously irrigated with the first 3 liters of antibiotic solution with Ancef. Then, an electrocautery synovectomy was performed removing the synovium and suprapatella r pouch in both gutters. Then, the retractors were placed and the polyethylene was identified to be intact. A rongeur was used to remove the post to access the metal pin, which was removed and then a curved osteotome was used to remove the polyethylene uneventfully. Then, further irrigation was perf ormed with more antibiotic solution with Ancef. Then, further debridement was performed with the [employer]hew device. The posterior synovium was debrided, the gutter synovium around the e dges of all implants, which were noted to be stable and well fixed. After that was completed, we use d the Betadine sponge to scrub the surfaces of the metal. After that, we did more antibiotic irrigat ion with pulsatile lavage with Ancef. Then, a 3-minute Betadine soak was performed. Then, further i rrigation with antibiotic solution with Ancef with Pulsavac. A trial reduction was performed and a 1 6 implant gave better stability after the synovectomy and removal of the scar tissue. Trial was peter dm. After further irrigation and changing of all gloves and drapes and new instruments and copious irrigation with pulsatile lavage, antibiotic solution with Ancef, the 16 mm Triathlon X3 polyethylene TS insert was impacted into position and then the central post was placed. Range of motion was 0 th rough 120 degrees and patella tracked centrally. The 2 drains were brought out laterally. Antibiotic beads that were made with vancomycin using the Stimulan beads were placed into the knee joint and th en the quadriceps tendon and medial retinaculum were closed with interrupted [id number] #1 Vicry l sutures, which were antibiotic resistant. The knee was taken through a full range of motion, repai r was secure. Then, the subcutaneous tissues were closed with interrupted 2-0 antibiotic resistant s uture. Skin was closed with lyndsey and a BRUCE and Acticoat superficial wound VAC was applied. Manny Liang was my first aid officer throughout the entire procedure. He functioned as first aid officer and he was integral part in all aspects of the procedure. He did assist in soft tissue retraction, i nstrument management, wound closure, and application of superficial wound VAC, and will participate i n postoperative care of the patient. Job ID: [id number]
[2021-07-26] MEDS ORDERED: KETOROLAC TROMETHAMINE 15 MG/ML VIAL IV PRN (13:24)
[2021-07-26] MEDS ORDERED: oxyCODONE HCL IR 5 MG TAB (IMMEDIATE RELEASE) PO PRN (13:24)
[2021-07-26] MEDS ORDERED: ACETAMINOPHEN 500 MG TAB PO SCH (13:24)
[2021-07-26] MEDS: POTASSIUM CHLORIDE / WTR 10 MEQ/100 ML PLCT IV SCH ×2 (13:54→15:18)
[2021-07-26] MEDS: ACETAMINOPHEN 500 MG TAB PO SCH ×2 (13:57→21:40)
[2021-07-26] MEDS: ENOXAPARIN INJ 40 MG/0.4 ML SYR SQ SCH ×2 (13:59→21:41)
--- NOTE | 2021-07-26 13:59 | Hospitalist Progress Note ---
Date of Service July 26, 2021 Assessment & Plan (1) Staphylococcus aureus bacteremia: (2) Septic arthritis of knee, right: (3) Cellulitis of right leg: (4) History of total right knee replacement (TKR): (5) Abnormal urinalysis: (6) Elevated troponin: (7) Hypokalemia: Plan: This is a 75-year-old who presents to ED after complaining of "I can't move x 2 weeks." He has been having trouble walking due to RLE pain for approximately 2 weeks. Septic right TKR with MSSA bacteremia History of right total knee replacement, 01/2021 Dr. Jimenez - Blood clx 07/24 with MSSA in 05/14, repeat blood clx 07/25 NTD. F/u on CRP, ESR intermittently - Right knee synovial aspiration growsing MSSA, negative crystals - S/p I&D, irrigation debridement, synovectomy of Right Knee with tibial polyethylene Bearing Change, placement of antibiotic beads and kannan and Acticoat superficial wound VAC (Right) 07/26/21- further management per ortho - Will request DANIEL to r/o vegetations as TTE couldn't see valves well - Consulted ID - Discussed with lab and pharmacy. Antibiotic to be deescalated to Ancef as MSSA. D1/TBD Hypokalemia- repleted, recheck in am No evidence of UTI on UA. Elevated trop- likely demand ischemia. No need for further trending at this point DVT prophylaxis: sc lovenox when okay per ortho Dispo: On IV antibiotics for bacteremia and septic TKR. Will likely need rehab. Admission and Anticipated Discharge Date Admission Date: July 24, 2021 Subjective Seen and examined at bedside after surgery. Sleeping but easily arousable but would again go back to sleep. Denies any pain. Had his lunch. Denies any new issues. Physical Exam Physical Exam: General: Sleeping in bed, easily arousable, not in distress, on room air HEENT: EOMI, MAEGAN, MMM Chest: Clear breath sounds bilaterally, no wheezes or crackles CVS: Regular rate and rhythm, normal heart sounds, no murmur Abdomen: Soft, non tender, not distended, normal bowel sounds Neuro: Sleepy but arousable and answers briefly Extremities: No cyanosis, clubbing. Right knee covered with dressing and icepack- hemovac suction with serosanguineous drainage Results & Data Results & Data ([facility]) Vital Signs (Past 12 Hours) Vital Signs Temp Pulse Pulse Pulse Resp BP BP 07/26/21 13:25 36.4 C L 91 H 16 137/79 07/26/21 13:05 36.5 C 84 16 136/69 07/26/21 12:40 36.2 C L 90 20 151/80 H 07/26/21 12:30 90 21 153/85 H 07/26/21 12:20 90 21 149/85 H 07/26/21 12:10 88 20 158/87 H 07/26/21 12:04 36.3 C L 91 H 19 160/85 H 07/26/21 07:35 96 H 07/26/21 07:00 36.7 C 82 20 136/69 07/26/21 04:23 36.9 C 107 H 20 138/69 07/26/21 02:33 92 H Pulse Ox 07/26/21 13:25 94 07/26/21 13:05 94 07/26/21 12:40 94 07/26/21 12:30 95 07/26/21 12:20 97 07/26/21 12:10 97 07/26/21 12:04 95 07/26/21 07:35 07/26/21 07:00 93 07/26/21 04:23 92 07/26/21 02:33 Laboratory Results Short CBC 07/26/21 Range/Units 07:31 WBC 8.67 (4.8-10.8) K/uL Hgb 13.2 L (14.0-18.0) g/dL Hct 38.9 L (42-52) % Plt Count 267 (130-400) K/uL BMP 07/26/21 07:31 Sodium 136 Potassium 3.3 L Chloride 101 Carbon Dioxide 27 BUN 10 Creatinine 0.60 Glucose 114 H Calcium 8.2 L Diagnostic Findings Knee X-Ray 07/26/21 12:13 XR knee RT 1 or 2V routine CLINICAL HISTORY: Surgical Post Op. COMPARISON STUDY: 07/24/2021 TECHNIQUE: 2 right knee views FINDINGS: Compared to previous examination, the patient is again status post total knee replacement with a hinge component. There is resurfacing of the patella. There has been interval placement of antibiotic beads within the knee joint. IMPRESSION: 1. Status post placement of antibiotic beads within the knee joint capsule. ACT 112: Negative or not required by law. Electronically signed by: Christoph Coles M.D. 07/26/2021 12:42 PM Medications Administered Current Inpatient Medications Acetaminophen (Acetaminophen 500 Mg Tab) 1,000 mg PO Q8 FABIAN Stop: 08/25/21 13:59 Last Admin: 07/26/21 13:57 Dose: 1,000 mg Documented by: Al Hydrox/Mg Hydrox/Simethicone (Aluminum/Magnesium Susp 30 Ml Udc) 15 ml PO Q4H PRN PRN Reason: Dyspepsia Stop: 08/23/21 17:44 Enoxaparin Sodium (Enoxaparin Inj 40 Mg/0.4 Ml Syr) 40 mg SQ Q12H FABIAN Stop: 08/23/21 21:59 Last Admin: 07/26/21 13:59 Dose: 40 mg Documented by: Cefazolin Sodium (Ancef 2000mg) 2,000 mg in 15 mls @ 3.75 mls/min IV Q8H FABIAN Stop: 08/09/21 17:59 Ketorolac Tromethamine (Ketorolac Tromethamine 15 Mg/Ml Vial) 15 mg IV Q6H PRN PRN Reason: Breakthrough Pain Magnesium Hydroxide (Magnesium Hydroxide Susp 30 Ml Udc) 30 ml PO Q12H PRN PRN Reason: Constipation Stop: 08/23/21 17:44 Multivitamins (Multivitamin Tab) 1 tab PO DAILY FABIAN Stop: 08/24/21 08:59 Last Admin: 07/26/21 08:07 Dose: 1 tab Documented by: Ondansetron HCl (Ondansetron Inj 2 Mg/Ml 2 Ml Vial) 4 mg IV Q6H PRN PRN Reason: Nausea Stop: 08/23/21 17:44 Oxycodone HCl (Oxycodone Hcl Ir 5 Mg Tab (Immediate Release)) 5 mg PO Q4H PRN PRN Reason: Pain Stop: 08/09/21 13:23 Polyethylene Glycol (Polyethylene (Miralax) 17 Gm Pack) 17 gm PO DAILY PRN PRN Reason: Constipation Stop: 08/23/21 17:44 Saccharomyces Boulardii (Saccharomyces Boulardii 250 Mg Cap) 250 mg PO DAILY FABIAN Stop: 08/24/21 15:44 Last Admin: 07/26/21 08:07 Dose: 250 mg Documented by:
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
[2021-07-26] MEDS: ceFAZolin 2000MG 2,000 MG/15 ML SYR IV SCH (18:05)
[2021-07-27] MEDS: ceFAZolin 2000MG 2,000 MG/15 ML SYR IV SCH ×3 (01:39→17:45)
[2021-07-27] MEDS: ACETAMINOPHEN 500 MG TAB PO SCH ×3 (05:20→21:52)
[2021-07-27 07:59] LABS: Hematocrit (blood only) 38.9 % (42-52); Hemoglobin 12.9 g/dL (14.0-18.0); Mean Corpuscular Hemoglobin 28.3 pg (25-34); Mean Corpuscular Hgb Conc 33.2 g/dL (32-36); Mean Corpuscular Volume 85.3 fL (80-100); Mean Platelet Volume 9.7 fL (7.4-10.4); Platelet Count 280 K/uL (130-400); RDW Coefficient of Variation 16.5 % (11.5-14.5); RDW Standard Deviation 51.7 fL (36.4-46.3); Red Blood Count 4.56 M/uL (4.7-6.1); White Blood Count 8.67 K/uL (4.8-10.8)
[2021-07-27] MEDS: SACCHAROMYCES BOULARDII 250 MG CAP PO SCH (08:01)
[2021-07-27] MEDS: MULTIVITAMIN TAB PO SCH (08:01)
[2021-07-27 08:28] LABS: BUN Creatinine Ratio 22.8 (10-20); Calcium 8.8 mg/dl (8.5-10.1); Creatinine Clr Calc Pharmacy 130.4 ml/min; Est GFR (African American) 114.8 ml/min; Potassium 3.9 mmol/L (3.5-5.1)
[2021-07-27] MEDS: ENOXAPARIN INJ 40 MG/0.4 ML SYR SQ SCH ×2 (10:07→21:52)
--- NOTE | 2021-07-27 11:56 | Cardiology Progress Note ---
Date of Service July 27, 2021 Assessment & Plan (1) Staphylococcus aureus bacteremia: Plan: Patient referred for consideration of transesophageal echocardiogram to aid in management for antibiotic usage. No audible murmur or prior history of valvular heart disease. Extremely poor echocardiographic images transthoracically We will keep n.p.o. after midnight and review in a.m. for possible transesophageal echocardiogram. No contraindications for procedure. We will need to ascertain whether this will filter changer in the setting of bacteremia, documented joint infection Admission and Anticipated Discharge Date Admission Date: July 24, 2021 Subjective Patient seen and examined, chart and medications reviewed. Alert today sitting out of bed in chair. No cardiac complaints or discomfort. No prior history of cardiac disease by his own description. No outpatient medications. No history rheumatic fever scarlet fever or heart murmur. Review of Systems Review of Systems: All systems reviewed & are unremarkable except as noted in Subjective Physical Exam Constitutional: well developed and well nourished Eyes: PERRL, conjunctivae normal, anicteric sclerae ENMT: external ear and nose normal, oropharynx normal Neck: trachea midline, no thyromegaly Respiratory: normal respiratory effort, lungs clear to auscultation Cardiovascular: Rate/Rhythm: regular rate and regular rhythm Heart Sounds: no murmur Gastrointestinal (Abdomen): normal bowel sounds, soft, nontender, no hepatosplenomegaly Results & Data ([facility]) Vital Signs (Past 12 Hours) Vital Signs Temp Pulse Pulse Resp BP Pulse Ox 07/27/21 11:00 36.6 C 79 20 126/72 92 07/27/21 10:46 93 07/27/21 07:30 77 07/27/21 07:00 36.4 C L 73 20 137/76 94 07/27/21 03:00 36.3 C L 75 20 128/74 97 07/27/21 00:42 78 Laboratory Results Laboratory Results - last 24 hr 07/27/21 07/27/21 07:45 07:45 WBC 8.67 RBC 4.56 L Hgb 12.9 L Hct 38.9 L MCV 85.3 MCH 28.3 MCHC 33.2 RDW Std Deviation 51.7 H RDW Coeff of Nik 16.5 H Plt Count 280 MPV 9.7 Sodium 138 Potassium 3.9 Chloride 104 Carbon Dioxide 30 Anion Gap 4 BUN 13 Creatinine 0.57 L Est Cr Clr Drug Dosing 130.4 Est GFR ( Amer) 114.8 Est GFR (Non-Af Amer) 99.0 BUN/Creatinine Ratio 22.8 H Glucose 112 H Calcium 8.8
--- NOTE | 2021-07-27 13:02 | Hospitalist Progress Note ---
Date of Service July 27, 2021 Assessment & Plan (1) Staphylococcus aureus bacteremia: (2) Septic arthritis of knee, right: (3) Cellulitis of right leg: (4) History of total right knee replacement (TKR): (5) Hypokalemia: Plan: This is a 75-year-old who presents to ED after complaining of "I can't move x 2 weeks." He has been having trouble walking due to RLE pain for approximately 2 weeks. Septic right TKR with MSSA bacteremia History of right total knee replacement, 01/2021 Dr. Jimenez - Blood clx 07/24 with MSSA in 2, repeat blood clx 07/26 negative. F/u on CRP, ESR intermittently - Right knee synovial aspiration 07/24 growsing MSSA, negative crystals - OR clx 07/26 growing SA - S/p I&D, irrigation debridement, synovectomy of Right Knee with tibial polyethylene Bearing Change, placement of antibiotic beads and kannan and Acticoat superficial wound VAC (Right) 07/26/21- further management per ortho - Cardio consulted for DANIEL to r/o vegetations as TTE couldn't see valves well - On Ancef as MSSA. D2/42. Discussed with lab and pharmacy. ID evaluation pending. Hypokalemia- resolved No evidence of UTI on UA. Elevated trop- likely demand ischemia. No need for further trending at this point DVT prophylaxis: sc lovenox Dispo: On IV antibiotics for bacteremia and septic TKR. Will need PICC line. ID evaluation pending. PT/OT recommends rehab. CM following. Admission and Anticipated Discharge Date Admission Date: July 24, 2021 Subjective He is feeling better today. Pain is controlled. Denies any fever, chills. No new issues. Physical Exam Physical Exam: General: Sitting in chair comfortably, not in distress, on room air HEENT: EOMI, MAEGAN, MMM Chest: Clear breath sounds bilaterally, no wheezes or crackles CVS: Regular rate and rhythm, normal heart sounds, no murmur Abdomen: Soft, non tender, not distended, normal bowel sounds Neuro: Awake, alert, oriented, conversing well, non focal Extremities: No cyanosis, clubbing. Right knee covered with dressing and icepack- hemovac suction with serosanguineous drainage Results & Data Results & Data ([facility]) Vital Signs (Past 12 Hours) Vital Signs Temp Pulse Pulse Resp BP Pulse Ox 07/27/21 11:00 36.6 C 79 20 126/72 92 07/27/21 10:46 93 07/27/21 07:30 77 07/27/21 07:00 36.4 C L 73 20 137/76 94 07/27/21 03:00 36.3 C L 75 20 128/74 97 Laboratory Results Short CBC 07/27/21 Range/Units 07:45 WBC 8.67 (4.8-10.8) K/uL Hgb 12.9 L (14.0-18.0) g/dL Hct 38.9 L (42-52) % Plt Count 280 (130-400) K/uL BMP 07/27/21 07:45 Sodium 138 Potassium 3.9 Chloride 104 Carbon Dioxide 30 BUN 13 Creatinine 0.57 L Glucose 112 H Calcium 8.8 Medications Administered Current Inpatient Medications Acetaminophen (Acetaminophen 500 Mg Tab) 1,000 mg PO Q8 FABIAN Stop: 08/25/21 13:59 Last Admin: 07/27/21 05:20 Dose: 1,000 mg Documented by: Al Hydrox/Mg Hydrox/Simethicone (Aluminum/Magnesium Susp 30 Ml Udc) 15 ml PO Q4H PRN PRN Reason: Dyspepsia Stop: 08/23/21 17:44 Enoxaparin Sodium (Enoxaparin Inj 40 Mg/0.4 Ml Syr) 40 mg SQ Q12H FABIAN Stop: 08/23/21 21:59 Last Admin: 07/27/21 10:07 Dose: 40 mg Documented by: Cefazolin Sodium (Ancef 2000mg) 2,000 mg in 15 mls @ 3.75 mls/min IV Q8H FABIAN Stop: 08/09/21 17:59 Last Admin: 07/27/21 10:07 Dose: 3.75 mls/min Documented by: Ketorolac Tromethamine (Ketorolac Tromethamine 15 Mg/Ml Vial) 15 mg IV Q6H PRN PRN Reason: Breakthrough Pain Magnesium Hydroxide (Magnesium Hydroxide Susp 30 Ml Udc) 30 ml PO Q12H PRN PRN Reason: Constipation Stop: 08/23/21 17:44 Multivitamins (Multivitamin Tab) 1 tab PO DAILY FABIAN Stop: 08/24/21 08:59 Last Admin: 07/27/21 08:01 Dose: 1 tab Documented by: Ondansetron HCl (Ondansetron Inj 2 Mg/Ml 2 Ml Vial) 4 mg IV Q6H PRN PRN Reason: Nausea Stop: 08/23/21 17:44 Oxycodone HCl (Oxycodone Hcl Ir 5 Mg Tab (Immediate Release)) 5 mg PO Q4H PRN PRN Reason: Pain Stop: 08/09/21 13:23 Polyethylene Glycol (Polyethylene (Miralax) 17 Gm Pack) 17 gm PO DAILY PRN PRN Reason: Constipation Stop: 08/23/21 17:44 Saccharomyces Boulardii (Saccharomyces Boulardii 250 Mg Cap) 250 mg PO DAILY [facility] Stop: 08/24/21 15:44 Last Admin: 07/27/21 08:01 Dose: 250 mg Documented by:
--- NOTE | 2021-07-27 13:36 | Orthopedic Progress Note ---
Date of Service July 27, 2021 Assessment & Plan (1) Cellulitis: Plan: POD #1 s/p Right knee incision and drainage and irrigation and debridement including electrocautery synovectomy and Versajet synovectomy debridement with tibial polyethylene exchange and placement of antibiotic beads with vancomycin. Hemovac in place and draining. Will stay in place until minimal drainage. Dressing change planned for tomorrow. BRUCE dressing to remain in place for 7 days. PT/OT. Pain control. We discussed the probable need for IV antibiotics for 6 weeks. Awaiting sensitivities. Once antibiotic choices made, a decision will be made about a PICC line placement. Discharge planninguncertain at this time. (2) Knee effusion, right: (3) History of total right knee replacement (TKR): Admission and Anticipated Discharge Date Admission Date: July 24, 2021 Subjective Right knee is doing well. Pain has been improved. No new complaints today. Denies chest pain, shortness of breath, lightheadedness. Physical Exam Constitutional: WD/WN, vitals as above no acute distress (Sitting in the chair beside his bed eating lunch.) Musculoskeletal: Knee: + surgical incision (Right knee dressing C/D/I) and + surgical drain present (160 cc over 24 hours); no skin erythema and no ecchymosis Neurologic: normal touch/pain/proprioception Psychiatric: A+Ox3, euthymic affect Speech: normal rate/rhythm/volume of speech Results & Data ([facility]) Vital Signs (Past 12 Hours) Vital Signs Temp Pulse Pulse Resp BP Pulse Ox 07/27/21 11:00 36.6 C 79 20 126/72 92 07/27/21 10:46 93 07/27/21 07:30 77 07/27/21 07:00 36.4 C L 73 20 137/76 94 07/27/21 03:00 36.3 C L 75 20 128/74 97 Laboratory Results Intraoperative cultures growing staph species. Awaiting sensitivities. (1) Cellulitis Laterality: right Site of cellulitis: extremity Site of cellulitis of extremity: lower extremity Qualified Code(s): L03.115 - Cellulitis of right lower limb
[2021-07-28] MEDS: ceFAZolin 2000MG 2,000 MG/15 ML SYR IV SCH ×3 (01:54→17:48)
[2021-07-28] MEDS: ACETAMINOPHEN 500 MG TAB PO SCH ×3 (05:12→21:18)
--- NOTE | 2021-07-28 07:09 | Orthopedic Progress Note ---
Date of Service July 28, 2021 Assessment & Plan (1) Cellulitis: Plan: POD #2 s/p Right knee incision and drainage and irrigation and debridement including electrocautery synovectomy and Versajet synovectomy debridement with tibial polyethylene exchange and placement of antibiotic beads with vancomycin. Hemovac in place and draining. Will stay in place until minimal drainage. BRUCE dressing to remain in place for 7 days. PT/OT. Pain control. On Lovenox for DVT prophylaxis Cultures growing MSSA. Likely will need 6 weeks of IV antibiotics. On Ancef currently. ID consult pending. Discharge planninguncertain at this time. (2) Knee effusion, right: (3) History of total right knee replacement (TKR): Admission and Anticipated Discharge Date Admission Date: July 24, 2021 Subjective Right knee is doing well. Having minimal pain today. No new complaints today. Denies chest pain, shortness of breath, lightheadedness. Review of Systems Review of Systems: All systems reviewed & are unremarkable except as noted in Subjective Physical Exam Physical Exam: Right knee dressing is c/d/i. Hemovac on suction, Bruce functioning. No calf tenderness. toes mobile with good dorsiflexion. Distally n/v status and sensation intact. Constitutional: WD/WN, vitals as above Results & Data ([facility]) Vital Signs (Past 12 Hours) Vital Signs Temp Pulse Pulse Resp BP Pulse Ox 07/28/21 03:42 36.6 C 89 18 141/82 H 95 07/28/21 03:03 99 H 07/27/21 23:07 36.7 C 95 H 16 148/83 H 92 07/27/21 19:16 36.6 C 93 H 20 160/80 H 96 Laboratory Results Name: EULALIA LUCERO Acct: [id number] Status: ADM IN : 1945 [facility] [place] Date: 07/24/21 Age: 75 Sex: M Dis Date: Loc: [address]/Bed: W255-2 Spec: [id number] Collected: 07/26/21-UNK Received: 07/26/21-[address]: Sam Jimenez M.D. Copy To: Darrin Reece MD Source: Joint Fluid,Knee OV Order: Ordered: Aer/Elisha Cult/Sm Comments: CULTURE #1: Comment right knee Procedure Result Verified Site Gram Stain Final 07/26/21154 Gram Stain Result Rare WBCs Seen No Organisms Seen Aero/Elisha Cult Preliminary 07/28/21-17 Organism 1 Staphylococcus aureus Quantity Moderate Sens Sensitivities to Follow S aureus RX M.I.C. --- --------- Clindamycin S <=0.5 Daptomycin S <=0.5 Erythromycin S <=0.5 Oxacillin S <=0.25 Tetracycline S <=4 Trimeth/Sulfa S <=0.5/9.5 Vancomycin S 1 S = SENSITIVE I = INTERMEDIATE R = RESISTANT (1) Cellulitis Laterality: right Site of cellulitis: extremity Site of cellulitis of extremity: lower extremity Qualified Code(s): L03.115 - Cellulitis of right lower limb
[2021-07-28] MEDS: MULTIVITAMIN TAB PO SCH (08:11)
[2021-07-28] MEDS: SACCHAROMYCES BOULARDII 250 MG CAP PO SCH (08:11)
[2021-07-28] MEDS: ENOXAPARIN INJ 40 MG/0.4 ML SYR SQ SCH ×2 (10:04→21:18)
--- NOTE | 2021-07-28 10:34 | Hospitalist Progress Note ---
Date of Service July 28, 2021 Assessment & Plan (1) Staphylococcus aureus bacteremia: (2) Septic arthritis of knee, right: (3) Cellulitis of right leg: (4) History of total right knee replacement (TKR): (5) Hypokalemia: Plan: This is a 75-year-old who presents to ED after complaining of "I can't move x 2 weeks." He has been having trouble walking due to RLE pain for approximately 2 weeks. Septic right TKR with MSSA bacteremia History of right total knee replacement, 01/2021 Dr. Jimenez - Blood clx 07/24 with MSSA in 05/14, repeat blood clx 07/26 negative. F/u on CRP, ESR intermittently - Right knee synovial aspiration 07/24 growsing MSSA, negative crystals - OR clx 07/26 growing SA - S/p I&D, irrigation debridement, synovectomy of Right Knee with tibial polyethylene Bearing Change, placement of antibiotic beads and bruce and Acticoat superficial wound VAC (Right) 07/26/21- further management per ortho- BRUCE dressing to remain in place for 7 days and hemovac to remain until minimal drainage - Cardio consulted for DANIEL to r/o vegetations as TTE couldn't see valves well but likely will not pipe changer. ID evaluation pending. - On Ancef as MSSA, plan for at least 6 weeks. Discussed with lab and pharmacy. ID evaluation pending. Hypokalemia- resolved No evidence of UTI on UA. Elevated trop- likely demand ischemia. No need for further trending at this point DVT prophylaxis: sc lovenox Dispo: On IV antibiotics for bacteremia and septic TKR. Ordered PICC line. ID evaluation pending. PT/OT recommends rehab. CM following. Admission and Anticipated Discharge Date Admission Date: July 24, 2021 Subjective Denies any new issues. Pain is controlled. Normal appetite. Regular bowel movements. No chest pain, shortness of breath, fever or chills. Physical Exam Physical Exam: General:Lying comfortably in bed, not in distress, on room air HEENT: EOMI, MAEGAN, MMM Chest: Clear breath sounds bilaterally, no wheezes or crackles CVS: Regular rate and rhythm, normal heart sounds, no murmur Abdomen: Soft, non tender, not distended, normal bowel sounds Neuro: Awake, alert, oriented, conversing well, non focal Extremities: No cyanosis, clubbing. Right knee covered with dressing and icepack- hemovac suction with serosanguineous drainage Results & Data Results & Data ([facility]) Vital Signs (Past 12 Hours) Vital Signs Temp Pulse Pulse Resp BP Pulse Ox 07/28/21 07:42 36.8 C 87 20 149/83 H 92 07/28/21 07:00 93 H 07/28/21 03:42 36.6 C 89 18 141/82 H 95 07/28/21 03:03 99 H 07/27/21 23:07 36.7 C 95 H 16 148/83 H 92 Medications Administered Current Inpatient Medications Acetaminophen (Acetaminophen 500 Mg Tab) 1,000 mg PO Q8 FABIAN Stop: 08/25/21 13:59 Last Admin: 07/28/21 05:12 Dose: 1,000 mg Documented by: Al Hydrox/Mg Hydrox/Simethicone (Aluminum/Magnesium Susp 30 Ml Udc) 15 ml PO Q4H PRN PRN Reason: Dyspepsia Stop: 08/23/21 17:44 Enoxaparin Sodium (Enoxaparin Inj 40 Mg/0.4 Ml Syr) 40 mg SQ Q12H FABIAN Stop: 08/23/21 21:59 Last Admin: 07/28/21 10:04 Dose: 40 mg Documented by: Cefazolin Sodium (Ancef 2000mg) 2,000 mg in 15 mls @ 3.75 mls/min IV Q8H FABIAN Stop: 08/09/21 17:59 Last Admin: 07/28/21 10:05 Dose: 3.75 mls/min Documented by: Ketorolac Tromethamine (Ketorolac Tromethamine 15 Mg/Ml Vial) 15 mg IV Q6H PRN PRN Reason: Breakthrough Pain Magnesium Hydroxide (Magnesium Hydroxide Susp 30 Ml Udc) 30 ml PO Q12H PRN PRN Reason: Constipation Stop: 08/23/21 17:44 Multivitamins (Multivitamin Tab) 1 tab PO DAILY FABIAN Stop: 08/24/21 08:59 Last Admin: 07/28/21 08:11 Dose: 1 tab Documented by: Ondansetron HCl (Ondansetron Inj 2 Mg/Ml 2 Ml Vial) 4 mg IV Q6H PRN PRN Reason: Nausea Stop: 08/23/21 17:44 Oxycodone HCl (Oxycodone Hcl Ir 5 Mg Tab (Immediate Release)) 5 mg PO Q4H PRN PRN Reason: Pain Stop: 08/09/21 13:23 Polyethylene Glycol (Polyethylene (Miralax) 17 Gm Pack) 17 gm PO DAILY PRN PRN Reason: Constipation Stop: 08/23/21 17:44 Saccharomyces Boulardii (Saccharomyces Boulardii 250 Mg Cap) 250 mg PO DAILY [facility] Stop: 08/24/21 15:44 Last Admin: 07/28/21 08:11 Dose: 250 mg Documented by:
--- NOTE | 2021-07-28 11:55 | Cardiology Progress Note ---
Date of Service July 28, 2021 Assessment & Plan (1) Staphylococcus aureus bacteremia: Plan: The patient has no contraindication to a transesophageal echocardiogram. Patient will be n.p.o. after midnight and the plan will be to proceed in the morning. The patient understands the risk, benefit and intent of the procedure and he is willing to proceed. Admission and Anticipated Discharge Date Admission Date: July 24, 2021 Subjective Patient no complaints today. Uneventful night. Review of Systems Review of Systems: Review of Systems: See HPI for pertinent positives. All other 10 point review of systems are negative. Physical Exam Physical Exam: General: no acute distress and stated age Head: normocephalic, no masses, lesions, tenderness or abnormalities Eyes: conjunctiva are pink and non-injected, sclera clear Neck: supple, no adenopathy, no bruits, normal jugular venous pulse, no hepatojugular reflux Chest: normal shape and normal respiratory effort Lungs: clear to auscultation and percussion Cardiac Exam: - regular rate & rhythm, no murmurs gallops or rubs - normal S1, normal S2 Pulses: 2(+) throughout Abdomen: abdomen soft, non-tender, no abnormal masses and no hepatosplenomegaly Musculoskeletal: no gait disturbance, no joint inflammation, no deforming arthritis Extremities: no edema and no cyanosis Neuro: grossly normal exam Results & Data ([facility]) Vital Signs (Past 12 Hours) Vital Signs Temp Pulse Pulse Resp BP Pulse Ox 07/28/21 11:42 36.7 C 87 18 149/80 H 94 07/28/21 07:42 36.8 C 87 20 149/83 H 92 07/28/21 07:00 93 H 07/28/21 03:42 36.6 C 89 18 141/82 H 95 07/28/21 03:03 99 H Medications Administered Current Inpatient Medications Acetaminophen (Acetaminophen 500 Mg Tab) 1,000 mg PO Q8 [facility] Stop: 08/25/21 13:59 Last Admin: 07/28/21 05:12 Dose: 1,000 mg Documented by: Al Hydrox/Mg Hydrox/Simethicone (Aluminum/Magnesium Susp 30 Ml Udc) 15 ml PO Q4H PRN PRN Reason: Dyspepsia Stop: 08/23/21 17:44 Enoxaparin Sodium (Enoxaparin Inj 40 Mg/0.4 Ml Syr) 40 mg SQ Q12H FABIAN Stop: 08/23/21 21:59 Last Admin: 07/28/21 10:04 Dose: 40 mg Documented by: Cefazolin Sodium (Ancef 2000mg) 2,000 mg in 15 mls @ 3.75 mls/min IV Q8H FABIAN Stop: 08/09/21 17:59 Last Admin: 07/28/21 10:05 Dose: 3.75 mls/min Documented by: Ketorolac Tromethamine (Ketorolac Tromethamine 15 Mg/Ml Vial) 15 mg IV Q6H PRN PRN Reason: Breakthrough Pain Magnesium Hydroxide (Magnesium Hydroxide Susp 30 Ml Udc) 30 ml PO Q12H PRN PRN Reason: Constipation Stop: 08/23/21 17:44 Multivitamins (Multivitamin Tab) 1 tab PO DAILY FABIAN Stop: 08/24/21 08:59 Last Admin: 07/28/21 08:11 Dose: 1 tab Documented by: Ondansetron HCl (Ondansetron Inj 2 Mg/Ml 2 Ml Vial) 4 mg IV Q6H PRN PRN Reason: Nausea Stop: 08/23/21 17:44 Oxycodone HCl (Oxycodone Hcl Ir 5 Mg Tab (Immediate Release)) 5 mg PO Q4H PRN PRN Reason: Pain Stop: 08/09/21 13:23 Polyethylene Glycol (Polyethylene (Miralax) 17 Gm Pack) 17 gm PO DAILY PRN PRN Reason: Constipation Stop: 08/23/21 17:44 Saccharomyces Boulardii (Saccharomyces Boulardii 250 Mg Cap) 250 mg PO DAILY FABIAN Stop: 08/24/21 15:44 Last Admin: 07/28/21 08:11 Dose: 250 mg Documented by:
[2021-07-28] MEDS ORDERED: EUCERIN CR 120 GM JAR EXT PRN (15:41)
[2021-07-28] MEDS: rifAMPin 300 MG CAPSULE PO SCH (21:18)
[2021-07-29] MEDS: ceFAZolin 2000MG 2,000 MG/15 ML SYR IV SCH ×3 (01:13→17:30)
[2021-07-29] MEDS: ACETAMINOPHEN 500 MG TAB PO SCH ×3 (06:02→21:43)
[2021-07-29] MEDS: MULTIVITAMIN TAB PO SCH (08:57)
[2021-07-29] MEDS: SACCHAROMYCES BOULARDII 250 MG CAP PO SCH (08:57)
[2021-07-29] MEDS: rifAMPin 300 MG CAPSULE PO SCH ×2 (08:57→21:44)
[2021-07-29] MEDS: ENOXAPARIN INJ 40 MG/0.4 ML SYR SQ SCH ×2 (10:10→21:44)
--- NOTE | 2021-07-29 12:03 | Orthopedic Progress Note ---
Date of Service July 29, 2021 Assessment & Plan (1) Cellulitis: Plan: POD #3 s/p Right knee incision and drainage and irrigation and debridement including electrocautery synovectomy and Versajet synovectomy debridement with tibial polyethylene exchange and placement of antibiotic beads with vancomycin. Hemovac DC'd today. BRUCE dressing to remain in place for 7 days. PT/OT. Pain control. On Lovenox for DVT prophylaxis Cultures growing MSSA. will need 6 weeks of IV antibiotics per infectious disease recommendations. On Ancef currently. Discharge planningpatient being set up for SNF. Patient orthopedically stable for transfer (2) Knee effusion, right: (3) History of total right knee replacement (TKR): Admission and Anticipated Discharge Date Admission Date: July 24, 2021 Subjective Postop day 3 Patient sitting up in bed awake and alert. States he feels a little tired today. No other complaints. Pain controlled. Physical Exam Physical Exam: Dressings are clean, dry, and intact. Calves are soft nontender. Neurovascular intact. Toes are mobile. Hemovac has minimal drainage. Results & Data ([facility]) Vital Signs (Past 12 Hours) Vital Signs Temp Pulse Pulse Pulse Resp BP Pulse Ox 07/29/21 11:24 36.6 C 98 H 16 150/87 H 94 07/29/21 08:00 36.5 C 90 18 138/75 93 07/29/21 07:00 87 07/29/21 03:04 36.9 C 69 18 139/76 94 (1) Cellulitis Laterality: right Site of cellulitis: extremity Site of cellulitis of extremity: lower extremity Qualified Code(s): L03.115 - Cellulitis of right lower limb
--- NOTE | 2021-07-29 12:21 | Hospitalist Progress Note ---
Date of Service July 29, 2021 Assessment & Plan (1) Staphylococcus aureus bacteremia: (2) Septic arthritis of knee, right: (3) Cellulitis of right leg: (4) History of total right knee replacement (TKR): (5) Hypokalemia: Plan: This is a 75-year-old who presents to ED after complaining of "I can't move x 2 weeks." He has been having trouble walking due to RLE pain for approximately 2 weeks. Prosthetic right TKR infection with MSSA and MSSA bacteremia History of right total knee replacement, 01/2021 Dr. Jimenez - Blood clx 07/24 with MSSA in 05/14, repeat blood clx 07/26 and 07/28 negative. - Right knee synovial aspiration 07/24 growsing MSSA, negative crystals - OR clx 07/26 growing SA - S/p I&D, irrigation debridement, synovectomy of Right Knee with tibial polyethylene Bearing Change, placement of antibiotic beads and bruce and Acticoat superficial wound VAC (Right) 07/26/21- further management per ortho- BRUCE dressing to remain in place for 7 days and hemovac pulled out today. Okay for discharge per ortho. - Seen by ID- recommendations as below: 1. Cefazolin 2g IV q 8 for 6 weeks 2. Rifampin 300mg po bid Although his TTE was not diagnostic, as long as he remains afebrile and his follow-up blood cultures stay negative, there is no clear need for a DANIEL. He will require a 6 week course of IV cefazolin anyway. Unfortunately, his TKA was not fully explanted. With MSSA and a polyliner exchange only, his infection may not resolve. After he completes the IV course, he should transition to a prolonged course of po therapy (TMP-SMX or doxycycline plus rifampin) for a total of 6 months at least. He will need close follow-up in the ID clinic to help with this. While on IV cefazolin, he will need weekly CBC, BMP, and CRP. Hypokalemia- resolved. will check labs in am. No evidence of UTI on UA. Elevated trop- likely demand ischemia. No need for further trending at this point DVT prophylaxis: sc lovenox Dispo: PT recommended rehab. Medically stable for transfer to rehab and ortho cleared too. PICC line ordered. Needs IV ABx for 6 weeks followed by chronic po antibiotic as above. Admission and Anticipated Discharge Date Admission Date: July 24, 2021 Subjective Seen and examined at bedside. States he is not getting enough sleep here. No other issues, Pain is controlled. Appetite okay. Moving bladder and bowel well without issues. Physical Exam Physical Exam: General:Lying comfortably in bed, not in distress, on room air HEENT: EOMI, MAEGAN, MMM Chest: Clear breath sounds bilaterally, no wheezes or crackles CVS: Regular rate and rhythm, normal heart sounds, no murmur Abdomen: Soft, non tender, not distended, normal bowel sounds Neuro: Awake, alert, oriented, conversing well, non focal Extremities: No cyanosis, clubbing. Right knee covered with dressing and icepack- hemovac suction with serosanguineous drainage Results & Data Results & Data ([facility]) Vital Signs (Past 12 Hours) Vital Signs Temp Pulse Pulse Pulse Resp BP Pulse Ox 07/29/21 11:24 36.6 C 98 H 16 150/87 H 94 07/29/21 08:00 36.5 C 90 18 138/75 93 07/29/21 07:00 87 07/29/21 03:04 36.9 C 69 18 139/76 94
[2021-07-30] MEDS: ceFAZolin 2000MG 2,000 MG/15 ML SYR IV SCH ×3 (02:24→18:16)
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
--- NOTE | 2021-07-30 08:22 | Post Operative Brief Note ---
Cardiology Brief Post Op Date of Surgery July 30, 2021 Pre & Post Diagnosis Operation Date: 07/30/21 07:30 Preprocedure diagnosis: Bacteremia, assess for cardiac source Postprocedure diagnosis: Aortic valve endocarditis Procedure Transesophageal echocardiogram procedure: After informed consent was obtained and timeout was performed the patient was sedated with the assistance of the anesthesia service receiving a total of 320 mg of IV propofol, 80 mg of IV lidocaine. There is a small mobile, linear echodensity on the aortic aspect of the aortic valve, which given the clinical presentation is consistent with vegetation. Refer to complete DANIEL report for details. Engine Room Helper DO Assistant Phli Ervin, RCS Estimated Blood Loss 10 Findings Consistent with Post-Op Diagnosis As noted above. Specimens Specimen Description: Non per surgeon Anesthesia Type MAC Complications None
[2021-07-30] MEDS ORDERED: LIDOCAINE 2% 2 ML VIAL/AMP(20MG/ML) INFIL ONE (08:23)
[2021-07-30] MEDS ORDERED: PROPOFOL IV EMULSION 10 MG/ML 20 ML VIAL IV ONE ×2 (08:23)
--- NOTE | 2021-07-30 08:35 | Cardiology Progress Note ---
Date of Service July 30, 2021 Assessment & Plan (1) Staphylococcus aureus bacteremia: (2) Aortic valve endocarditis: (3) Septic arthritis of knee, right: Plan: There is a small, mobile , linear echodensity on the aortic aspect of the aortic valve which in light of the clinical presentation and persistent MSSA bacteremia is consistent with an aortic valve vegetation. No evidence of perivalvular abscess. Other valves well visualized and are without vegetation. Will need prolonged IV antibiotics. Repeat DANIEL in 5-6 weeks. Admission and Anticipated Discharge Date Admission Date: July 24, 2021 Subjective Patient seen in cardiology follow up prior to, during and post DANIEL procedure. Pt tolerated the procedure well. SR noted on monitoring tech. Physical Exam Physical Exam: Temp Pulse Resp BP Pulse Ox 36.6 C 87 16 122/74 98 07/30/21 04:28 07/30/21 08:15 07/30/21 08:15 07/30/21 08:15 07/30/21 08:15 Constitutional: WD/WN, vitals as above Respiratory: normal respiratory effort, lungs clear to auscultation Cardiovascular: RRR, no murmur, no edema Gastrointestinal (Abdomen): normal bowel sounds, soft, nontender, no hepatosplenomegaly Neurologic: PERRL, EOMI, accommodation nl, no face palsy, no dysarthria Results & Data ([facility]) Vital Signs (Past 12 Hours) Vital Signs Temp Pulse Pulse Resp BP BP Pulse Ox 07/30/21 08:15 87 16 122/74 98 07/30/21 07:30 88 89 98 H 149/90 H 94 07/30/21 04:28 36.6 C 84 18 158/78 H 97 07/29/21 22:53 36.8 C 87 18 160/87 H 97 Laboratory Results Intake and Output 07/29/21 07/30/21 07/30/21 22:59 06:59 14:59 Intake Total 240 / 600 Output Total 725 / 1750 450 / 1750 Balance -485 / -1150 -450 / -1150 Intake: Oral 240 / 600 Output: Urine 725 / 1750 450 / 1750 Other: Other Intake Source NPO Weight 97 kg 97 kg Weight Measurement Method Built in [facility] Patient Weight 07/31/21 06:59 Weight 97 kg
[2021-07-30] MEDS: rifAMPin 300 MG CAPSULE PO SCH ×2 (08:58→21:23)
[2021-07-30] MEDS: ACETAMINOPHEN 500 MG TAB PO SCH ×3 (08:58→21:23)
[2021-07-30] MEDS: ENOXAPARIN INJ 40 MG/0.4 ML SYR SQ SCH ×2 (08:58→21:24)
[2021-07-30] MEDS: MULTIVITAMIN TAB PO SCH (08:58)
[2021-07-30] MEDS: SACCHAROMYCES BOULARDII 250 MG CAP PO SCH (08:58)
[2021-07-30 09:30] LABS: Hematocrit (blood only) 41.1 % (42-52); Hemoglobin 13.4 g/dL (14.0-18.0); Mean Corpuscular Hemoglobin 28.2 pg (25-34); Mean Corpuscular Hgb Conc 32.6 g/dL (32-36); Mean Corpuscular Volume 86.5 fL (80-100); Platelet Count 407 K/uL (130-400); RDW Coefficient of Variation 16.8 % (11.5-14.5); RDW Standard Deviation 53.5 fL (36.4-46.3); Red Blood Count 4.75 M/uL (4.7-6.1); White Blood Count 7.13 K/uL (4.8-10.8)
[2021-07-30 09:55] LABS: BUN Creatinine Ratio 14.9 (10-20); C Reactive Protein 9.38 mg/dl (0-0.5); Creatinine Clr Calc Pharmacy 111.5 ml/min; Est GFR (African American) 107.4 ml/min; Est GFR (Non-African American) 92.7 ml/min; Magnesium 2.1 mg/dl (1.7-2.4); Potassium 3.8 mmol/L (3.5-5.1)
--- NOTE | 2021-07-30 10:27 | Communication Note ---
Date of Service: July 30, 2021 Discussed DANIEL findings with Sister , Payton , per patient's preference.
--- NOTE | 2021-07-30 11:54 | Anesthesiology Progress Note ---
Date of Service July 30, 2021 Anesthesia Post Procedure Vital Signs Vital Signs: Temp Pulse Pulse Pulse Resp BP BP 07/30/21 08:28 86 18 141/77 H 07/30/21 08:15 87 16 122/74 07/30/21 07:30 88 89 98 H 149/90 H 07/30/21 04:28 36.6 C 84 18 158/78 H 07/29/21 22:53 36.8 C 87 18 160/87 H 07/29/21 19:50 36.7 C 83 18 142/79 H 07/29/21 15:55 36.6 C 83 18 136/77 07/29/21 14:20 88 Pulse Ox 07/30/21 08:28 95 07/30/21 08:15 98 07/30/21 07:30 94 07/30/21 04:28 97 07/29/21 22:53 97 07/29/21 19:50 92 07/29/21 15:55 94 07/29/21 14:20 Pain Intensity Right Knee: Pain Intensity: 1 Transfer of Care Handoff Completed per policy Notes Mental Status: alert / awake / arousable and participated in evaluation Patient Amnestic to Procedure: Yes Nausea / Vomiting: adequately controlled Pain: adequately controlled Airway Patency, RR, SpO2: stable & adequate BP & HR: stable & adequate Hydration State: stable & adequate Anesthetic Complications: no major complications apparent and Pt Satisfied with anesthetic care
--- NOTE | 2021-07-30 12:35 | Hospitalist Progress Note ---
Date of Service July 30, 2021 Assessment & Plan (1) Staphylococcus aureus bacteremia: (2) Septic arthritis of knee, right: (3) Cellulitis of right leg: (4) History of total right knee replacement (TKR): (5) Hypokalemia: Plan: This is a 75-year-old who presents to ED after complaining of "I can't move x 2 weeks." He has been having trouble walking due to RLE pain for approximately 2 weeks. 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 Jimenez - Blood clx 07/24 with MSSA in 05/14, repeat blood clx 07/26 and 07/28 positive - Right knee synovial aspiration 07/24 growsing MSSA, negative crystals - OR clx 07/26 growing SA - S/p I&D, irrigation debridement, synovectomy of Right Knee with tibial polyethylene Bearing Change, placement of antibiotic beads and bruce and Acticoat superficial wound VAC (Right) 07/26/21- further management per ortho- BRUCE dressing to remain in place for 7 days and hemovac pulled out today. Okay for discharge per ortho. - Seen by ID- recommendations as below: 1. Cefazolin 2g IV q 8 for 6 weeks 2. Rifampin 300mg po bid DANIEL done today showed today by cardiology showed small mobile, linear echodensity on the aortic aspect of the aortic valve, which given the clinical presentation is consistent with vegetation. DANIEL finding discussed with Sister and patient at bedside He will require a 6 week course of IV cefazolin anyway. Unfortunately, his TKA was not fully explanted. With MSSA and a polyliner exchange only, his infection may not resolve. After he completes the IV course, he should transition to a prolonged course of po therapy (TMP-SMX or doxycycline plus rifampin) for a total of 6 months at least. He will need close follow-up in the ID clinic to help with this. While on IV cefazolin, he will need weekly CBC, BMP, and CRP. Case discussed with ID dr. Mehta today that recommended for PICC line placement if blood cx remains negative after 48hrs Hypokalemia K 3.8 today Stable Elevated troponin likely demand ischemia. No need for further trending at this point DVT prophylaxis: Lovenox Disposition Medically stable for transfer to rehab and ortho cleared too. PICC line ordered. Needs IV ABx for 6 weeks followed by chronic po antibiotic Admission and Anticipated Discharge Date Admission Date: July 24, 2021 Subjective Pt was seen and examined for follow up for bacteremia Lying in bed with no acute distress with sister at bedside Pt said that he feels fine He said that he walked in the hallway with therapy today Denies any chest pain, palpitation, dizziness and SOB Review of Systems Review of Systems: All systems reviewed & are unremarkable except as noted in Subjective Physical Exam Physical Exam: General- No acute distress Head- atraumatic Eyes- PERRL, EOMI, ENT- oropharynx clear Neck- supple, no JVD Lungs- clear to auscultation Heart- regular rhythm; no murmur Abdomen- normal bowel sounds, soft, nontender Extremities- no calf tenderness, Right knee covered with dressing Neuro- alert, oriented x 3; PERRL, EOMI; no facial palsy; no dysarthria Skin- warm & dry Results & Data Results & Data ([facility]) Vital Signs (Past 12 Hours) Vital Signs Temp Pulse Pulse Resp BP BP Pulse Ox 07/30/21 12:00 36.4 C L 97 H 18 135/71 91 07/30/21 08:28 86 18 141/77 H 95 07/30/21 08:15 87 16 122/74 98 07/30/21 07:30 88 89 98 H 149/90 H 94 07/30/21 04:28 36.6 C 84 18 158/78 H 97
[2021-07-31] MEDS: ceFAZolin 2000MG 2,000 MG/15 ML SYR IV SCH ×3 (01:38→17:38)
[2021-07-31] MEDS: ACETAMINOPHEN 500 MG TAB PO SCH ×3 (05:47→21:54)
[2021-07-31] MEDS: rifAMPin 300 MG CAPSULE PO SCH ×2 (10:59→21:51)
[2021-07-31] MEDS: SACCHAROMYCES BOULARDII 250 MG CAP PO SCH (11:00)
[2021-07-31] MEDS: MULTIVITAMIN TAB PO SCH (11:00)
[2021-07-31] MEDS: ENOXAPARIN INJ 40 MG/0.4 ML SYR SQ SCH ×2 (11:00→21:52)
--- NOTE | 2021-07-31 12:00 | Cardiology Progress Note ---
Date of Service July 31, 2021 Assessment & Plan (1) Staphylococcus aureus bacteremia: (2) Aortic valve endocarditis: (3) Septic arthritis of knee, right: Plan: Small aortic valve vegetation, without significant stenosis or regurgitation. Recommend long-term antibiotics, likely 6 weeks, currently patient is on Ancef plus rifampin. Would repeat transesophageal echocardiogram in interval of 5 to 6 weeks, just prior to or after discontinuation of IV antibiotics. Most recent blood cultures have remained negative. Admission and Anticipated Discharge Date Admission Date: July 24, 2021 Subjective Patient seen in cardiology follow-up. He was comfortable. Sitting in bedside chair. He states he went for a walk, with no knee pain. Denies fevers or chills. Telemetry reveals sinus rhythm in the 80s to 90s. Physical Exam Constitutional: WD/WN, vitals as above Respiratory: normal respiratory effort, lungs clear to auscultation Cardiovascular: RRR, no murmur, no edema Gastrointestinal (Abdomen): normal bowel sounds, soft, nontender, no hepatosplenomegaly Neurologic: PERRL, EOMI, accommodation nl, no face palsy, no dysarthria Results & Data ([facility]) Vital Signs (Past 12 Hours) Vital Signs Temp Pulse Pulse Pulse Resp BP Pulse Ox 07/31/21 11:21 36.8 C 97 H 18 118/72 97 07/31/21 07:51 36.7 C 81 18 134/76 92 07/31/21 07:48 76 07/31/21 04:00 36.6 C 85 18 136/82 96 07/31/21 00:40 85 Laboratory Results Intake and Output 07/30/21 07/31/21 07/31/21 22:59 06:59 14:59 Intake Total 240 / 1030 150 / 1030 Output Total 475 / 1675 650 / 1675 Balance -235 / -645 -500 / -645 Intake: Oral 240 / 1030 150 / 1030 Output: Urine 475 / 1675 650 / 1675 Other: Weight 99.5 kg Weight Measurement Method Built in [facility]
--- NOTE | 2021-07-31 23:55 | Hospitalist Progress Note ---
Date of Service July 31, 2021 Assessment & Plan (1) Staphylococcus aureus bacteremia: (2) Septic arthritis of knee, right: (3) Cellulitis of right leg: (4) History of total right knee replacement (TKR): (5) Hypokalemia: Plan: This is a 75-year-old who presents to ED after complaining of "I can't move x 2 weeks." He has been having trouble walking due to RLE pain for approximately 2 weeks. 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 Jimenez - Blood clx 07/24 with MSSA in 05/14, repeat blood clx 07/26 and 07/28 positive - Right knee synovial aspiration 07/24 growsing MSSA, negative crystals - OR clx 07/26 growing SA - S/p I&D, irrigation debridement, synovectomy of Right Knee with tibial polyethylene Bearing Change, placement of antibiotic beads and bruce and Acticoat superficial wound VAC (Right) 07/26/21- further management per ortho- BRUCE dressing to remain in place for 7 days and hemovac pulled out today. Okay for discharge per ortho. - Seen by ID- recommendations as below: 1. Cefazolin 2g IV q 8 for 6 weeks 2. Rifampin 300mg po bid DANIEL done today showed today by cardiology showed small mobile, linear echodensity on the aortic aspect of the aortic valve, which given the clinical presentation is consistent with vegetation. DANIEL finding discussed with Sister and patient at bedside He will require a 6 week course of IV cefazolin anyway. Unfortunately, his TKA was not fully explanted. With MSSA and a polyliner exchange only, his infection may not resolve. After he completes the IV course, he should transition to a prolonged course of po therapy (TMP-SMX or doxycycline plus rifampin) for a total of 6 months at least. He will need close follow-up in the ID clinic to help with this. While on IV cefazolin, he will need weekly CBC, BMP, and CRP. Case discussed with ID dr. Mehta today that recommended for PICC line placement if blood cx remains negative after 48hrs Repeat blood on 07/29 remains negative- will place PICC line tomororw Hypokalemia K 3.8 Stable Elevated troponin likely demand ischemia. No need for further trending at this point DVT prophylaxis: Lovenox Disposition Medically stable for transfer to rehab and ortho cleared too. PICC line ordered. Needs IV ABx for 6 weeks followed by chronic po antibiotic Admission and Anticipated Discharge Date Admission Date: July 24, 2021 Subjective Pt was seen and examined for follow up for bacteremia Lying in bed with no acute distress Pt said that he feels fine Denies any chest pain, palpitation, dizziness and SOB Review of Systems Review of Systems: All systems reviewed & are unremarkable except as noted in Subjective Physical Exam Physical Exam: General- No acute distress Head- atraumatic Eyes- PERRL, EOMI, ENT- oropharynx clear Neck- supple, no JVD Lungs- clear to auscultation Heart- regular rhythm; no murmur Abdomen- normal bowel sounds, soft, nontender Extremities- no calf tenderness, Right knee covered with dressing Neuro- alert, oriented x 3; PERRL, EOMI; no facial palsy; no dysarthria Skin- warm & dry Results & Data Results & Data ([facility]) Vital Signs (Past 12 Hours) Vital Signs Temp Pulse Pulse Pulse Resp BP Pulse Ox 07/31/21 23:22 36.8 C 90 18 128/70 94 07/31/21 19:29 36.9 C 85 18 135/47 L 94 07/31/21 15:04 90 07/31/21 14:45 36.9 C 85 18 134/74 93
[2021-08-01] MEDS: ceFAZolin 2000MG 2,000 MG/15 ML SYR IV SCH ×3 (01:48→18:02)
[2021-08-01] MEDS: ACETAMINOPHEN 500 MG TAB PO SCH ×2 (05:50→15:03)
[2021-08-01] MEDS: ENOXAPARIN INJ 40 MG/0.4 ML SYR SQ SCH (10:07)
[2021-08-01] MEDS: MULTIVITAMIN TAB PO SCH (10:07)
[2021-08-01] MEDS: rifAMPin 300 MG CAPSULE PO SCH (10:07)
[2021-08-01] MEDS: SACCHAROMYCES BOULARDII 250 MG CAP PO SCH (10:07)
--- NOTE | 2021-08-01 10:29 | Cardiology Progress Note ---
Date of Service August 01, 2021 Assessment & Plan (1) Staphylococcus aureus bacteremia: (2) Aortic valve endocarditis: (3) Septic arthritis of knee, right: Plan: Small aortic valve vegetation, without significant stenosis or regurgitation. Recommend long-term antibiotics, likely 6 weeks, currently patient is on Ancef plus rifampin. Would repeat transesophageal echocardiogram in interval of 5 to 6 weeks, just prior to or after discontinuation of IV antibiotics (arrangements already in progress). Most recent blood cultures performed 07/29/21 have remained negative. Continue lovenox for DVT prophylaxis. Admission and Anticipated Discharge Date Admission Date: July 24, 2021 Subjective Patient seen in cardiology follow up. Resting comfortably. SR in the 80s noted on telemetry. Physical Exam Constitutional: WD/WN, vitals as above Respiratory: normal respiratory effort, lungs clear to auscultation Cardiovascular: RRR, no murmur, no edema Gastrointestinal (Abdomen): normal bowel sounds, soft, nontender, no hepatosplenomegaly Neurologic: PERRL, EOMI, accommodation nl, no face palsy, no dysarthria Results & Data ([facility]) Vital Signs (Past 12 Hours) Vital Signs Temp Pulse Pulse Pulse Resp BP Pulse Ox 08/01/21 07:40 36.6 C 74 18 130/64 96 08/01/21 04:32 36.6 C 83 18 143/73 H 94 08/01/21 00:03 87 07/31/21 23:22 36.8 C 90 18 128/70 94
--- NOTE | 2021-08-01 15:26 | Discharge Summary ---
Date of Service August 01, 2021 Admission HPI Per Admitting Provider This is a 75-year-old who presents to ED after complaining of "I can't move x 2 weeks." He has been having trouble walking due to RLE pain for approximately 2 weeks. He has hx of R TKA in 01/[address] Jimenez. He has been using a cane since surgery. He had 2 falls this week. He landed in bed on both falls and did not have any injury or loss of consciousness. A few days a go he rolled out of bed and hit his head of sweeper. Again he had no injury. He has been having pain off and on to R knee since surgery and decreased ability to move it. And redness. He was seen at ER twice recently due to fall and R leg pain but discharged home. Due to difficulty walking his sister from [place] came up to help him the past 3 days. He denies f/c/s, chest pain, sob, cough, uri sx, n/v/d, abd pain, dysuria, hematuria, increased urg/freq with urination, melena, hematochezia. His appetite is unchanged. He did have episode of diarrhea about 1 week ago that last 3 days. When he falls he feels leg gives out. He denies dizziness or lightheadedness. In ED patient did have low-grade fever at 37.6 and was mildly tachycardic. His white blood cell count was normal. There was concern for cellulitis to right lower extremity so he was placed on IV vancomycin. Initial urinalysis also concerning for UTI and he was placed on IV Rocephin. He also was noted to have hypokalemia at 3.0. This was replaced. His high-sensitivity troponin was elevated at 23.8. EKG was without ischemic change. In ED he received IV antibiotics, IV fluids and oral potassium. Admission Exam Per Admitting Provider Constitutional: WD/WN, vitals as above, NAD, sitting up in bed, pleasant, conversing easily, poor bed mobility Head: Normocephalic, Atraumatic Eyes: PERRL, conjunctivae normal, anicteric sclerae ENMT: external ear and nose normal, oropharynx normal Neck: trachea midline, no thyromegaly normal visual inspection Respiratory: normal respiratory effort, lungs clear to auscultation with decreased breath sounds at bases, bibasilar crackles, no wheezes or rhonchi. Normal insp/exp effort, no accessory muscle use Cardiovascular: Tachycardic rate, regular rhythm, right lower extremity edema with mild erythema, dry extremities, scab noted to anterior aspect of right pretibial area, effusion noted to right knee but no surrounding erythema. vessels: no JVD or carotid bruit Chest: normal inspection of chest Abdomen: normal bowel sounds, soft, nontender, no hepatosplenomegaly Musculoskeletal: no cyanosis or clubbing, active range of motion x3, patient difficulty with extension/flexion to right lower extremity Skin: no rashes, warm and dry normal turgor Neurologic: PERRL, EOMI, accommodation nl, no face palsy, no dysarthria CN's II-XI intact bilaterally and moves all extremities Psychiatric: A+Ox3, euthymic affect : deferred Principal Diagnosis Septic right TKA Staphylococcus aureus bacteremia Aortic valve endocarditis Hypokalemia Elevated troponin Discharge Exam General- No acute distress Head- atraumatic Eyes- PERRL, EOMI, ENT- oropharynx clear Neck- supple, no JVD Lungs- clear to auscultation Heart- regular rhythm; no murmur Abdomen- normal bowel sounds, soft, nontender Extremities- no calf tenderness, Right knee covered with dressing Neuro- alert, oriented x 3; PERRL, EOMI; no facial palsy; no dysarthria Skin- warm & dry Discharge Data Allergies Allergy/AdvReac Type Severity Reaction Status Date / Time clarithromycin [From Biaxin] Allergy Hives Verified 01/29/21 05:33 Consultations 07/24/21 15:51 ED Decision to Admit Stat 07/24/21 15:52 Consult Orthopedic Surgery Routine 07/26/21 10:23 Consult Infectious Diseases Routine 07/26/21 10:24 Consult Cardiology Routine Procedures Performed Operation Date: 07/26/21 07:00 Actual Procedures p Right Knee with Polyethylene Bearing Change, Antibiotic beads and Woun Vac(Right) - Sam Jimenez MD s Incision and Drainage of Right Knee with - Sam Jimenez MD Operation Date: 07/30/21 07:30 Actual Procedures p Echo Transesophageal - Gianni Garcia DO Ordered Studies 07/24/21 11:26 US venous doppler LE RT Stat 07/24/21 13:25 CT head/brain wo con Stat 07/26/21 06:50 US - OR guided needle placemen Routine XR chest 1V not portable HISTORY: 75 years-old Male SEPSIS acute sepsis COMPARISON: Chest radiograph 12/23/2020 TECHNIQUE: Portable AP view of the chest FINDINGS: The cardiac silhouette is enlarged. Pulmonary vascular congestion with interstitial coarsening. Mild right hemidiaphragmatic elevation. Trace pleural effusions with mild bibasilar densities. No pneumothorax. Degenerative changes of the shoulders and spine. IMPRESSION: 1. Cardiomegaly with pulmonary edema. 2. Trace pleural effusions with mild bibasilar opacities. 3. Mild right hemidiaphragmatic elevation. ACT 112: Negative or not required by law. The above report was generated using voice recognition software. It may contain grammatical, syntax or spelling errors. Electronically signed by: Daniel Nelson M.D. 07/24/2021 2:02 PM Dictated:07/24/21 1400 Transcribed: 07/24/21 1400 XR hip 1V RT w pelvis CLINICAL HISTORY: Increasing right hip pain for the past 2 weeks.. COMPARISON STUDY: No previous studies for comparison. TECHNIQUE: AP pelvis and 2 right hip views FINDINGS: Bones: There is no evidence for an acute fracture or dislocation. There is no lytic or blastic lesion. Joints: There is moderate narrowing right hip joint space and moderate narrowing of the left hip joint space. Subchondral sclerosis and subchondral cyst formation are seen involving the superior acetabulum bilaterally. The bones are in anatomic alignment. Lumbar spine: The lower lumbar spine was included on the AP view of the pelvis and demonstrates marked degenerative change. Soft tissues: There is no focal soft tissue abnormality. There is no radiopaque foreign body. IMPRESSION: 1. No acute osseous pathology. 2. Osteoarthritis and degenerative changes. ACT 112: Negative or not required by law. Electronically signed by: Christoph Coles M.D. 07/24/2021 2:02 PM Dictated:07/24/21 1401 Transcribed: 07/24/21 1401 XR knee RT 1 or 2V routine CLINICAL HISTORY: Right knee pain. COMPARISON STUDY: Right knee 01/29/2021. FINDINGS: There is again noted a constrained right total knee arthroplasty. The hardware appears intact. No abnormal periprosthetic lucency. No fracture or dislocation within the right knee. Anterior soft tissue swelling. There is a large knee effusion. IMPRESSION: 1. No fractures within the right knee. 2. Large knee effusion. 3. Anterior soft tissue swelling. ACT 112: Negative or not required by law. Electronically signed by: Garrison Arthur M.D. 07/24/2021 2:02 PM Dictated:07/24/21 1401 Transcribed: 07/24/21 1401 US venous doppler LE RT HISTORY: 75 years-old Male swelling/pain eval dvt acute pain and swelling of the right lower leg COMPARISON: None TECHNIQUE: Multiple real-time sonographic images of the right lower extremity deep venous structures were obtained assessing grayscale appearance, color and spectral flow. FINDINGS: Normal flow, compressibility, phasicity and augmentation. IMPRESSION: No sonographic evidence of deep venous thrombosis. ACT 112: Negative or not required by law. The above report was generated using voice recognition software. It may contain grammatical, syntax or spelling errors. Electronically signed by: Daniel Nelson M.D. 07/24/2021 1:25 PM Dictated:07/24/21 1325 Transcribed: 07/24/[address] SCAN OF THE BRAIN WITHOUT IV CONTRAST CLINICAL HISTORY: Falls. Generalized weakness. Difficulty with ambulation. COMPARISON STUDY: No priors. TECHNIQUE: Unenhanced axial CT scan of the brain is performed from the vertex to the skull base. A dose lowering technique was utilized adhering to the principles of ALARA. CT DOSE: 823.94 mGycm FINDINGS: Brain parenchyma: There are age-related involutional changes noting moderate patchy subcortical and periventricular microangiopathic change. There is no hemorrhage, mass effect, or evidence of acute territorial ischemia by CT criteria. Roberson-white matter differentiation is preserved. No extra-axial fluid collection is seen. Prominent perivascular spaces are noted in the basal ganglia bilaterally. Ventricles, sulci, cisterns: Prominent secondary to involutional change. Intracranial vasculature: There is atherosclerotic calcification of the cavernous carotid and vertebral arteries. Calvarium: Unremarkable. Sinuses and mastoids: The visualized paranasal sinuses are clear. The mastoid air cells are well pneumatized. Orbits: The bony orbits are grossly intact. IMPRESSION: There is no hemorrhage, mass effect, or evidence of acute territorial ischemia by CT criteria. ACT 112: Negative or not required by law. Electronically signed by: Ruiz Hamlin M.D. 07/24/2021 2:04 PM Dictated:07/24/21 1402 Transcribed: 07/24/21 140 XR knee RT 1 or 2V routine CLINICAL HISTORY: Surgical Post Op. COMPARISON STUDY: 07/24/2021 TECHNIQUE: 2 right knee views FINDINGS: Compared to previous examination, the patient is again status post total knee replacement with a hinge component. There is resurfacing of the patella. There has been interval placement of antibiotic beads within the knee joint. IMPRESSION: 1. Status post placement of antibiotic beads within the knee joint capsule. ACT 112: Negative or not required by law. Electronically signed by: Christoph Coles M.D. 07/26/2021 12:42 PM Dictated:07/26/21 1240 Transcribed: 07/26/21 124 Hospital Course (1) Staphylococcus aureus bacteremia: (2) Septic arthritis of knee, right: (3) Cellulitis of right leg: (4) History of total right knee replacement (TKR): (5) Hypokalemia: This is a 75-year-old who presents to ED after complaining of "I can't move x 2 weeks." He has been having trouble walking due to RLE pain for approximately 2 weeks. 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 Jimenez - Blood clx 07/24 with MSSA in 2/, repeat blood clx 07/26 and 07/28 positive - Right knee synovial aspiration 07/24 growsing MSSA, negative crystals - OR clx 07/26 growing SA - S/p I&D, irrigation debridement, synovectomy of Right Knee with tibial polyethylene Bearing Change, placement of antibiotic beads and bruce and Acticoat superficial wound VAC (Right) 07/26/21- further management per ortho- BRUCE dressing to remain in place for 7 days and hemovac pulled out today. Okay for discharge per ortho. - Seen by ID- recommendations as below: 1. Cefazolin 2g IV q 8 for 6 weeks ( starting from negative blood cx on 07/29/21) 2. Rifampin 300mg po bid DANIEL done today showed today by cardiology showed small mobile, linear echodensity on the aortic aspect of the aortic valve, which given the clinical presentation is consistent with vegetation. DANIEL finding discussed with Sister and patient at bedside He will require a 6 week course of IV cefazolin anyway. Unfortunately, his TKA was not fully explanted. With MSSA and a polyliner exchange only, his infection may not resolve. After he completes the IV course, he should transition to a prolonged course of po therapy (TMP-SMX or doxycycline plus rifampin) for a total of 6 months at least. He will need close follow-up in the ID clinic to help with this. While on IV cefazolin, he will need weekly CBC, BMP, and CRP. Case discussed with ID dr. Mehta today that recommended for PICC line placement if blood cx remains negative after 48hrs Repeat blood on 07/29 remains negative- will place PICC line tomorow Hypokalemia K 3.8 Stable Elevated troponin likely demand ischemia. No need for further trending at this point DVT prophylaxis: Lovenox Disposition Plan to transfer to the [facility] Continue IV ABx for 6 weeks followed by chronic po antibiotic case discussed with the [place] provider ADOLFO Bee ( Maribell's colleague) Total Time Total Time Spent Total Time Spent (In Minutes): 45 minutes Discharge Plan Discharge Items Patient Disposition: Transfer [place] Hospital Reason For Visit: RLE CELLULITIS Discharge Diagnosis: Septic right TKA Staphylococcus aureus bacteremia Aortic valve endocarditis Hypokalemia Elevated troponin Activity: Per Instructions section Weightbearing: Right weightbearing Weightbearing Comment: As tolerated with walker Non-emergency contact: Surgeon and Arc Cutter Call non-emergency contact if: your pain is not controlled, your temperature is above 101.5, your wound has increased redness and your wound has increased drainage Follow-up/Referrals: Sam Jimenez MD [Surgeon] - (follow up in 14 days from the day of surgery) Rick Montes MD [Primary Care Provider] - Diet: Heart Healthy Addtl Attending Provider Instructions: Follow up with your primary care provider Dr. Montes once discharge form the [facility] Follow up with cardiology in in 5 to 6 weeks to arrange for repeat DANIEL for the endocarditis Follow up with orthopedic Dr. Jimenez in 7 to 10 days (please call to schedule for the appointment) Continue physical and occupational therapy Continue antibiotic infusion with Cefazolin 2 g IV q8h for 6 weeks (starting form the negative blood culture on 07/29/21) along with Rifampin 300mg oral twice a day; Then he will transition to a prolonged course of po therapy (TMP-SMX or doxycycline plus rifampin) for a total of 6 months at least. Check CBC, BMP and CRP weekly while on Cefazolin You will need close follow up with infectious disease Addtl Java Development Team Lead Provider Instructions: ACTIVITY RECOMMENDATIONS: SELF CARE INSTRUCTIONS AFTER TOTAL KNEE REPLACEMENT A. You may need to continue a physical therapy program after discharge from the hospital. There are several options available to you. Your doctor will assist you in selecting the best one for you. 1. An out-patient facility 2 to 3 times a week for therapy or home therapy. 2. Continue working on all exercises taught to you in the hospital. Your goals should be to increase bending of your knee to 90 degrees and beyond and to fully straighten your knee. B. You may progress at your own pace from walking with a walker or crutches to a cane; then to no assistive devices. C. Make walking a part of your daily routine. Be up as much as comfortable with rest periods throughout the day. Rest with leg elevation is very important. Use the ice wrap frequently for the first 3-4 weeks. D. There are no restrictions on activities. You may ride in a car, shop, participate in software asset manager and all social activities. E. Wear the long elastic stockings (ARTEM hose) 20 hours a day for 2 weeks after surgery. They can be removed several times a day for laundering and for a bath. F. You may shower, no tub baths until cleared by your doctor. SPECIAL CARE INSTRUCTIONS: VERY IMPORTANT TO READ AND REVIEW A. There are a few signs you need to watch for after you are home. Call [facility] if you notice any of the followin. Increased severe knee pain. Some pain is expected especially when you exercise. 2. Increased swelling in your leg or knee; pain or swelling of the calf muscle in either lower leg. 3. Any fluid drainage from the incision. 4. Shortness of breath or chest pain. B. Please call [facility] at if you have any concerns or questions about your operation or recovery. The doctor or his nurse will return your call promptly. C. You must take antibiotics before dental work, bladder, bowel or other surgery. Your doctor will provide you with a permanent care to carry describing this precaution. IMPORTANT: * REMEMBER TO TAKE ENOXAPARIN 40MG DAILY OR YOUR DOCTOR ORDERS. THIS IS YOUR BLOOD THINNER. * CALL IF INCREASED PAIN, REDNESS, DRAINAGE OR FEVER GREATER THAT 101. * WEAR ARTEM HOSE 20 HOURS PER DAY FOR 2 WEEKS. * BRUCE dressing. - This is a large suction dressing covering your incision. This will help pull any excess drainage from the wound and allow your incision to heal properly. You may shower with this if you can keep the unit outside of the shower. If any bleeding or leakage is noted please call your doctor's office. This will remain on your incision for 7 days and then should be removed. This can be done yourself or by the home nursing staff if applicable. The entire unit is disposable once removed. Once removed, keep incision clean and dry. If redness or drainage is noted, please call your surgeon. . * AFTER BRUCE REMOVED, KEEP A STERILE DRESSING ON THE WOUND UNTIL SEEN BACK IN THE OFFICE FOR YOUR FIRST POST OPERATIVE VISIT. FOLLOW UP VISIT: If appointment is not already scheduled: Please call [facility] to make a follow-up appointment for 2 weeks after your surgery at . Pending Studies at Discharge: No Stand-Alone Forms: My [facility] Skilled Items Patient informed of condition?: Yes DNR: No Discharge Level of Care: Other Communicable Disease: No Discharge Prognosis: Stable Lines: PICC Urinary Catheter: No Medications and DC Order Prescriptions: New rifampin 300 mg Capsule 300 mg PO BID 30 Days Qty: 60 RF: 0 enoxaparin [Lovenox] 40 mg/0.4 mL Syringe 40 mg subcut DAILY Qty: 0.4 RF: 0 acetaminophen [Tylenol Extra Strength] 500 mg Tablet 500 mg PO Q6H PRN (Reason: pain) Qty: 30 RF: 0 cefazolin 2 gram recon soln 2 g IV Q8H Qty: 1 RF: 0 polyethylene glycol 3350 [Miralax] 17 gram Powder In Packet 17 g PO DAILY PRN (Reason: constipation) Qty: 30 RF: 0 Saccharomyces boulardii [Florastor] 250 mg Capsule 250 mg PO DAILY Qty: 30 RF: 0 Continued multivitamin Tablet 1 tab PO DAILY RF: 0 Discharge Orders: Discharge Order (Routine); Ordered 08/01/21 Ordered By: Ruben Astudillo Admission Data Admit Date/Time: 07/24/21 15:52 Attending Provider: Ruben Astudillo Admit Provider: Darrin Reece Primary Care Provider: Rick Montes Other Providers: [facility] ; Darrin Reece ; Ángel Alvarez ; Vaughn Quiroz ; Milagro March ; Armando Mehta I. ; Jacques Wise II ; Ariela Trinidad ; Sanjay De La Torre ; Harry Chávez ; Kentrell Prabhakar ; Gianni Garcia ; Stoney Aguilar ; Carmine Best ; Apolinar Frias ; Sanjay Pham ; Brigitte Jaime ; Kailey Perkins ; Tasneem Mccloud ; Hunter Wynn ; Kb Rice.
== END 2021-08-01 19:08 | DRG 466 ==
LOC: ED 11:14 → SUATTDRO 15:52 → 2W 15:52